=== PATIENT | female | born 1955 | race Caucasian/White ===

== ENCOUNTER 2025-04-11 15:36 | Outpatient (AMB) | payer MEDICARE, SELFPAY ==
--- OUTSIDE RECORDS SUMMARY | 2025-04-11 15:38 | XMS_ITS ---
Author Name [facility] Organization Unknown Care Team Organization Name Specialty Phone Email Start Date End [place] Francia [facility] 07/19/2022 04/29/20 24
--- OUTSIDE RECORDS SUMMARY | 2025-04-11 15:38 | XMS_ITS | Encounter Summary ---
Author Organization [facility] Address [address] [place] [address] Care Team Providers Care Children'S Program Coordinator Name Role Phone Francia Francois MD Primary Care Provider Reason for Visit * Reason Onset Date Comments Request For Order(s) 04/02/2025 [facility] Order # [id number] Encounter Details Date Type Department Care Team ([facility] Contact Info) Description 04/02/2025 Telephone Internal Medicine [facility] [address] [facility] [address] [place] [phone] Liset Fleming MA Request For Order(s) ([facility] Order # [id number]/) Social History Tobacco Use Types Packs/Day Years Used Date Smoking Tobacco: Every Day Cigarettes 0.5 57.1 Started: 1970 Smokeless Tobacco: Never Comments:Pt is trying to treasure t smoking. Has not smoked x 1 wk. Alcohol Use Standard Drinks/Week Comments Yes 0 (1 standard drink = 0.6 oz pur e alcohol) 1/day Housing Instability Answer Date Recorde d Are you worried that in the next 2 months you may not have stable housing? No 10/07/2024 Food Access & Nutrition Answer Date Rec orded Do you have access to a vari ety of food including fruits and vegetables? Yes 10/07/2024 Access to Healthcare Answer Date Record ed Within the last 3 months, [place] many times did you visit the emergency department for your medical care? 4 03/03/2025 Health Literacy Answer Date Recorded How often do you need to hav e someone help you when you read instructions, pamphlets, or other written material from your doctor or pharmacy? Sometimes 10/07/2024 Caregiver: How often do you need to have someone help you when you read instructions, pamphlets, or other written material from your doctor or pharmacy? Not on file 10/07/2024 Financial Risk Answer Date Recorded How hard is it for you to pa y for the very basics like food, housing, medical care, and air conditioning / heating? Hard 10/07/2024 Transportation Answer Date Recorded Has the lack of transportati on kept you from meetings, work, or from getting things needed for daily living? No Has the lack of transportati on kept you from medical appointments or from getting medications? No 03/03/2025 Social Isolation Answer Date Recorded How often do you feel lonely or isolated from those around you? Patient declined 10/07/2024 Food Risk Answer Date Recorded Within the past 12 months we worried whether our food would run out before we got money to buy more. Patient declined 025 Within the past 12 months th e food we bought just didn't last and we didn't have money to get more. Patient declined 09/12 Dependent Care Answer Date Recorded Do you need help finding or paying for care for your loved ones. For example, care transport nurse or elderly care for an older adult? No 10/07/2024 Education Answer Date Recorded Do you think completing more education or training, like finishing a GED, going to college, or learning a trade, would be helpful for you? N/A 10/07/2024 Employment and Income Answer Date Recor ded During the last four weeks, have you been actively looking for work? No 10/07/2024 Living Situation Answer Date Recorded What is your living situation? 0 10/07/2024 Interpersonal Safety Answer Date Record ed Physical Abuse 03/13/2025 Verbal Abuse 03/13/2025 Comments No Sex and Gender Information Value Date Recorded Sex Assigned at Female 09/22/2024 2:57 PM EST Legal Sex Female 4:32 PM EST Gender Identity Female 09/22/2024 2:57 PM EST Sexual Orientation Straight 11/05/2024 12 :39 PM EST documented as of this encounter Functional Status * Are you deaf or do you have serious difficulty hearing? Answer Date of Assessment Author No 03/13/2025 5:33 PM EDT Reed Almonte, CLEMENCIA * Are you blind or do you have serious difficulty seeing, even when wearing glasses? Answer Date of Assessment Author No 03/13/2025 5:33 PM EDT Reed Almonte RN * Do you have serious difficulty walking or climbing stairs? Answer Date of Assessment Author No 03/13/2025 5:33 PM EDT Reed Almonte RN * Do you have serious difficulty dressing or bathing? Answer Date of Assessment Author No 03/13/2025 5:33 PM EDT Reed Almonte RN * Because of a physical, mental, or emotional condition, do you have serious difficulty doing errandsalone such as visiting the doctor? Answer Date of Assessment Author No 03/13/2025 5:33 PM EDT Reed Almonte RN documented as of this encounter Mental Status * Because of a physical, mental, or emotional condition, do you have serious difficulty concentrating, remembering, or making decisions? (5 years old or older) Answer Entry Date Author No 03/13/2025 5:33 PM EDT Reed Almonte RN documented in this encounter Progress Notes * Liset Fleming MA - 04/04/2025 11:50 AM EDT Scanned into chart and faxed to [facility] [phone] * Liset Fleming MA - 04/02/2025 1:40 PM EDT [facility] Order # [id number] Please sign & documented in this encounter Plan of Treatment Upcoming Encounters Date Type Department Care Team (Late st Contact Info) Description 04/24/2025 10:[address] [facility] [address] [facility] [address] [place] [phone] 05/01/2025 3:00 PM EDT Evaluation [facility] Outpatient Rehabilitation [facility] [address] [facility] [place] [address] [place] [phone] Fang Velasco, PT 05/16/2025 2:40 PM EDT Office Visit Gastroenterology - [address] [facility] [address] [place] [address] Antonieta Martinez PA [address] [facility] [address] [place] [address] 06/12/2025 2:45 PM EDT Office Visit Pulmonolgy - [place] [address] [phone] Aparna Contreras, EVARISTO [address] [address] 06/23/2025 2:45 PM EDT Office Visit [facility] Hematology Oncology [address] [place] [phone] Joslyn Vergara DO [address] [place] [address] 06/24/2025 3:45 PM EDT Office Visit Internal Medicine - [place] [address] [phone] Francia Francois MD [address] [phone] documented as of this encounter Visit Diagnoses Not on filedocumented in this encounter Additional Health Concerns Assessment Noted Time PHQ-9 Depression Total Score: 20 025 1:44 PM EST documented as of this encounter Care Teams Children'S Program Coordinator Relationship Specialty Start Date End Date Francia Francois MD [address] [phone] PCP - General Internal Medicine 11/24/21 documented as of this encounter
--- OUTSIDE RECORDS SUMMARY | 2025-04-11 15:38 | XMS_ITS | Patient Health Record ---
Author Organization [facility] Address [address] [place] [address] Care Team Providers Care Invoice Coder Name Role Phone TOM MCDONOUGH Unavailable [phone] Allergies No Known Allergies Reason For Referral No Information Medications Medication SIG (Take, Route, Frequency, Duration) Notes Start Date End Date Status Atenolol 50 MG TAKE 1 TABLET BY DANAE TH EVERY DAY Diagnosis Unavailable Oral; Duration: 90 Active Trelegy Ellipta 100-62.5-25 MCG/INH INHALE 1 PUFF INTO THE LUNGS DAILY AT THE SAME TIME EACH DAY. RINSE MOUTH AFTER TO AVOID FUNGAL INFECTION. Diagnosis Unavailable Inhalation; Duration: 30 Active oxyCODONE-Acetaminophen 7.5-325 MG Oral; Duration: 28 Active Lisinopril 10 MG Oral; Duration: 30 Active Fluticasone Propionate 50 MCG/ACT SPRAY 2 SPRAYS IN EACH NOSTRIL DAILY Nasal; Duration: 90 Active buPROPion HCl ER (SR) 150 MG Oral; Duration: 30 Active Ipratropium-Albuterol 0.5-2.5 (3) MG/3ML INHALE 3ML INTO THE LUNGS 4 TIMES DAILY NEEDED FOR SHORTNESS OF BREATH AND/OR WHEEZING Inhalation; Duration: 90 Active Clotrimazole-Betamethasone 1-0.05 % APPLY TOPICALLY TO THE AFFECTED AREA TWICE DAILY Diagnosis Unavailable External; Duration: 7 Active Albuterol Sulfate HFA 108 (90 Base) MCG/ACT INHALE 1 PUFF BY MOUTH EVERY 6 HOURS Inhalation; Duration: 100 Active Theophylline ER 300 MG Oral; Duration: 30 Active Escitalopram Oxalate 20 MG Oral; Duration: 30 Active Lovastatin 20 MG Oral; Duration: 30 Active Social History Tobacco Use: Social History Observation Description Date Details (start date - stop date) Current Smoker NA - NA Tobacco Use/Smoking Question Answer Notes Are you a current smoker How often do you smoke cigarettes? every day How many cigarettes a day do you smoke? 11-20 Are you interested in quitting? Thinking about q uitting Additional Findings: Tobacco User Modera te cigarette smoker (10-19 cigs/day) Section Notes: Started smoking at the age [age] and smoke about 1pck a day Problems Problem Type SNOMED Code ICD Code Onset Dates Problem Status W/U Status Risk Notes Problem Chronic pain (26044892) Other chronic pain (G89.29) Active confirmed Problem Essential hypertension (41618050) Essential (primary) hypertension (I10) Active confirmed Problem Pure hypercholesterolemia (163553450) Pure hypercholesterolemia (E78.00) Active confirmed Problem Anxiety (16574731) Anxiety (F41.9) Active confi rmed Problem COPD - Chronic obstructive pulmonary disease (34671336) Chronic obstructive pulmonary disease, unspecified COPD type (J44.9) Active confirmed Problem Mild major depression, single episode (90313032) Current mild episode of major depressive disorder without prior episode (F32.0) Active confirmed Plan Of Treatment No Information Insurance Providers Payer Name Payer Address Payer Phone Subscriber Number Group Number Insured Name Patient Relationship to Insured Coverage Start Date Coverage End Date [facility] [address] [place] [address] [id number] [employer] Self - patient is the insured Medical (General) History Medical History History ICD Code hypertension asthma headache hyperlipidemia anxiety depression Surgical History Surgery Date(Month/Year) Tubaligation Mole on her lip was removed and biopsy s how cancerous mole
--- NOTE | 2025-04-11 15:40 | A.OFFVIS_ITS ---
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 The lower back pain began approximately 20-25 years ago following her longterm, attributed to lifting heavy sacks at work. She initially sought relief through ocular care technician and later received monthly injections, which provided temporary relief but were discontinued due to the frequency and associated pain. The cervical spine arthritis is characterized by a limited range of motion, particularly when turning the head quickly, and is accompanied by a clicking sensation. The patient reports that the neck pain is more severe than the back pain, necessitating frequent rest after standing for short periods. She has undergone multiple imaging studies, including X-rays and CT scans, to evaluate t he extent of arthritis. These records are not available for review at this time. Consent will be signed to obtain x-ray results from [facility]. The patient has tried various interventions, including physical therapy and topical analgesics, to manage her symptoms. She expresses reluctance to continue with steroid injections due to past negative experiences and is considering a lternative pain management strategies. - Onset: Pain began approximately 20-25 years ago after longterm due to lifting heavy sacks at work. - Quality: Described as severe neck pain with a clicking sensation, more intense than back pain. - Location: Primarily in the neck and lower back. - Exacerbating factors: Standing for more than a few minutes, turning head quickly. - Relieving factors: Sitting down, use of topical analgesics. - Affect: Pain significantly impacts daily activities, requiring frequent rest. - Analgesia: Previously used steroid injections, currently using topical analgesics. - Adverse Effects: Pain from previous steroid injections, reluctance to continue them. - Activities of Daily Living: Pain limits ability to stand for extended periods and affects neck mobility. - Aberrant Drug Related Behaviors: None reported. Review of Systems Const Details: - Musculoskeletal: Reports chronic lower back pain and neck pain with limited range of motion. - Neurological: Denies dizziness or balance issues. Physical Exam Exam Exam: General: awake, alert, oriented. Answers questions appropriately. Fully engaged in examination. Skin: warm, dry, intact HEENT: Normocephalic. Hearing intact. Cardiac: External chest normal in appearance. Respiratory: No cough, audible wheezing or stridor. Abdomen: without gross distension. MS: No obvious swelling or deformities. Cervical spine: Decreased range motion all planes. Tenderness to palpation midline cervical vertebrae and cervical paraspinal muscles. Bilateral upper extremity strength 5/5. Facet loading positive Neurological: Oriented to person, place, time and situation. Thought process intact. Sitting in wheelchair Psychiatric: Appropriate mood and affect. Good judgment and insight. Vital Signs: Last Vital Signs Pulse 94 04/11/25 15:43 Resp 16 04/11/25 15:43 BP 124/60 04/11/25 15:43 Pulse Ox 96 04/11/25 15:43 Oxygen Delivery Method Room Air 04/11/25 15:43 BMI result Body Mass Index 23.1 Assessment & Plan Assessment & Plan (1) Cervical spondylosis: Code(s): M47.812 - Spondylosis without myelopathy or radiculopathy, cervical region Category: Medical (2) Lumbar spondylosis: Code(s): M47.816 - Spondylosis without myelopathy or radiculopathy, lumbar region Category: Medical (3) Chronic pain syndrome: Code(s): G89.4 - Chronic pain syndrome Category: Medical Plan The management plan for the patient's chronic cervical spine pain includes diagnostic injections and if positive results plan for radiofrequency ablation. The patient is encouraged to maintain the use of topical analgesics and engage in physical therapy to alleviate symptoms. Medical record release this has been signed for Jeanna in [facility] to obtain x-ray results. Continue with Tylenol as prescribed. Unable to take nonsteroidal anti- inflammatory medications due to current use of Eliquis. Will schedule for fluoroscopy guided bilateral diagnostic C2-C3 C4 medial branch blocks with local anesthetic. We will start with the right side, left side to follow in 1-2 weeks. Patient is advised that she will need to hold Eliquis for these injections pending authorization by PCP. Patient was informed and verbally consented to the use of an ambient scribe for clinic note documentation during this visit. Patient Instructions: - Continue using topical analgesics as needed for pain relief. - Engage in physical therapy exercises to improve mobility and reduce pain. - Await scheduling for diagnostic injections to evaluate the potential for radiofrequency ablation. - Follow up with imaging studies as ordered to assess the extent of arthritis. Coding Level of Care Code New Pt Level 4 (93619) Complex EM visit Add On G2211 Diagnoses Cervical spondylosis M47.812 Lumbar spondylosis M47.816 Chronic pain syndrome G89.4
[2025-04-11 15:43] VITALS: BP 124/60; PULSE 94; RESP 16; O2SAT 96; BMI 23.1
== END 2025-04-11 16:12 | disposition home or self-care (01) ==
LOC: HO.PMC 15:37
PROVIDERS: PCP Internal Medicine; Referring Provider Internal Medicine; Visit Provider Registered Nurse Emergency
DX: M47.812 Spondylosis without myelopathy or radiculopathy, cervical region (principal); M47.816 Spondylosis without myelopathy or radiculopathy, lumbar region; G89.4 Chronic pain syndrome
CPT/HCPCS: 99204; G2211

== ENCOUNTER → 2025-04-11 15:36 | Outpatient (BNVA) | payer MEDICARE, SELFPAY | PROVIDERS: PCP Internal Medicine; Referring Provider Internal Medicine; Visit Provider Registered Nurse Emergency | DX: M47.812 Spondylosis without myelopathy or radiculopathy, cervical region (principal); M47.815 Spondylosis without myelopathy or radiculopathy, thoracolumbar region; G89.4 Chronic pain syndrome | CPT/HCPCS: 99202 ==

== ENCOUNTER 2025-06-19 06:24 | Outpatient (REF) | payer MEDICARE, SELFPAY ==
--- NOTE | ~2025-06-19 | FL_ITS ---
EXAMINATION: FL GUIDANCE ONLY HISTORY: M47.812 - Spondylosis without myelopathy or radiculopathy, cervical region COMPARISON: None available. TECHNIQUE: Fluoroscopy time: 0.3 minutes. Cumulative Dose: 1.14 mGy. DAP: 0.0155 mGycm2 Images: 4. FINDINGS: Fluoroscopic spot films of the cervical spine demonstrate needles and contrast material in place on the right. FL/FL guidance in treatment room IMPRESSION: Fluoroscopy during procedure. Please see procedure report for additional information. Electronically signed by: Juvencio Durbin MD 06/19/2025 02:58 PM EDT
== END 2025-06-19 06:25 | disposition home or self-care (01) ==
LOC: CF 06:24
PROVIDERS: Visit Provider Internal Medicine
DX: M47.812 Spondylosis without myelopathy or radiculopathy, cervical region (principal)
CPT/HCPCS: 64490; 64491; J2795; Q9967

== ENCOUNTER 2025-06-19 13:03 | Outpatient (AMB) | payer MEDICARE, SELFPAY ==
--- NOTE | 2025-06-19 13:16 | A.OFFVIS_ITS ---
Vital Signs 06/19/25 13:17 Height 5 ft 3 in Weight 120 lb BMI 21.3 BP 127/58 L Blood Pressure Location Rt brachial Position Sitting Pulse 106 H Pulse Source Pulse Oximeter Pulse Oximetry (%) 95 Oxygen Delivery Method Nasal Cannula Oxygen Flow Rate 3 Intake Visit Reasons: Bilateral Diagnostic C2-C3-C4 MBB Office Clinician Required: No Azure Developer: Azure Developer Present Accompanied by: Employee Allergies No Known Allergies Allergy (Verified 06/19/25 13:17) HPI HPI Bilateral Diagnostic C2-C3-C4 MBB: Details: Patient presents for scheduled procedure. Denies any recent cough, cold, infection, fever or other significant changes in medical history since last office visit. Physical Exam Vital Signs: Last Vital Signs Pulse 106 H 06/19/25 13:17 BP 127/58 L 06/19/25 13:17 Pulse Ox 95 06/19/25 13:17 Oxygen Delivery Method Nasal Cannula 06/19/25 13:17 Oxygen Flow Rate 3 06/19/25 13:17 BMI result Body Mass Index 21.3 Office Procedures Cervical/Thoracic Facet Inj Details: Diagnostic Cervical Medial Branch Block, Bilateral C3, C4 medial branches After obtaining written consent, pre-procedure blood pressure and pulse were re corded and are in the nursing record for review. The patient was placed in a lateral position. The respective cervical area was prepped with chloraprep and draped in sterile fashion. The skin over the target medial branch nerves was anesthetized with 0.5% lidocaine. A 25 gauge 1.5 inch needle was inserted into the target medial branch nerve under fluoroscopic guidance. No paresthesias were elicited with needle placement and aspiration was negative for blood and CSF. Next, 0.2cc of omnipaque 180 was injected to verify positioning. Next 0.5 ml 0.5% ropivicaine was injected (0.5 cc total per level). The identical procedure was performed at the remaining levels. The skin was cleansed and a sterile bandage was applied. Following the procedure the patient's vital signs were stable. The patient tolerated the procedure well and no complications were encountered. Following the procedure the patient's vital signs were stable. The patient was discharged home in good condition with post-procedural instructions. Time Out: Immediately prior to the procedure, the following was verbally confirmed that there is a signed consent form and that the correct patient, planned procedure, site and side are consistent with documentation and that necessary equipment and/or blood products are available prior to the start of the case. Complications: none EBL: <5 cc 11623 - with Fluoroscopy 47390 - second level, with Fluoroscopy (bilateral) Procedure code (CPT) selection complete Assessment & Plan Assessment & Plan (1) Cervical spondylosis: Code(s): M47.812 - Spondylosis without myelopathy or radiculopathy, cervical region Category: Medical Plan Patient is status post bilateral C3 and C4 medial branch blocks. Patient tolerated procedure well and was discharged home in stable condition with discharge instructions. All questions were answered. We will follow-up via telephone or in clinic to assess response to therapy. A follow-up appointment was made during today's visit. Orders: Orders FL guidance in treatment room 06/19/25 M47.812 - Spondylosis without myelopathy or radiculopathy, cervical region Coding Level of Care Code Procedure Only Diagnoses Cervical spondylosis M47.812 CPT Codes Facet Injection Cervical/Thoracic - CPT: 17188 - with Fluoroscopy ([id number]) Facet Injection Cervical/Thoracic - CPT: 58118 - second level, with Fluoroscopy ([id number])
[2025-06-19 13:17] VITALS: BP 127/58; PULSE 106; O2SAT 95; BMI 21.3
== END 2025-06-19 13:55 | disposition home or self-care (01) ==
LOC: HO.PMCPRC 13:03
PROVIDERS: PCP Internal Medicine; Visit Provider Internal Medicine
DX: M47.812 Spondylosis without myelopathy or radiculopathy, cervical region (principal)
CPT/HCPCS: 64490; 64491

== ENCOUNTER 2025-07-11 13:48 | Outpatient (AMB) | payer MEDICARE, SELFPAY ==
--- OUTSIDE RECORDS SUMMARY | 2025-07-04 15:10 | XMS_ITS | Encounter Summary ---
Author Organization [facility] Address [address] [place] [address] Care Team Providers Care Data Integration Architect Name Role Phone Francia Francois MD Primary Care Provider [phone] Reason for Referral * Imaging (Routine) - Pending Review Specialty Diagnoses / Procedures Referred By Ketan carter Referred To Contact Radiology Diagnoses Current smoker Abnormal CT of the chest Mass of upper lobe of right lung Pulmonary nodule 1 cm or greater in diameter Procedures PET CT Skull to Mid Thigh Initial Aparna Contreras NP [address] [place] [address] Phone: tel: fax: [address] [address] Phone: tel: Referral ID Status Reason Start Date Expiration Date V isits Requested Visits Authorized [id number] Pending Review 06/16/2025 06/16/2026 1 1 Reason for Visit * Imaging (Routine) - Pending Review Specialty Diagnoses / Procedures Referred By Ketan carter Referred To Contact Radiology Diagnoses Current smoker Abnormal CT of the chest Mass of upper lobe of right lung Pulmonary nodule 1 cm or greater in diameter Procedures PET CT Skull to Mid Thigh Initial Aparna Contreras NP [address] [place] [address] Phone: tel: fax: [facility] [address] [place] [address] Phone: tel: Referral ID Status Reason Start Date Expiration Date V isits Requested Visits Authorized [id number] Pending Review 06/16/2025 06/16/2026 1 1 Encounter Details Date Type Department Care Team (Latest Contact Info) Description 07/04/2025 3:10 PM EDT Hospital Encounter [facility] PET Scan [address] [place] [address] Current smoker; Abnormal CT of the chest; Mass of upper lobe of right lung; Pulmonary nodule 1 cm or greater in diameter Social History Tobacco Use Types Packs/Day Years Used Date Smoking Tobacco: Every Day Cigarettes 0.5 57.3 Started: 1970 Smokeless Tobacco: Never Comments:Pt is [...] Record ed Within the last 3 months, ho w many times did you visit the emergency [...] care for your loved ones. For example, child welfare social worker or elderly care for an older adult? [...] Date Recorded What is your living situation? Unrecognized valu e 10/07/2024 Interpersonal Safety Answer Date Record ed Physical Abuse Unrecognized value 04/17/2025 Verbal Abuse Unrecognized value 04/17/2025 Comments No Sex and Gender Information Value [...] 5:33 PM EDT Reed Almonte RN * Are you blind or do you have serious difficulty seeing, even when wearing glasses? Answer Date of Assessment Author No 03/13/2025 5:33 PM Reed Sharma RN * Do you have serious difficulty walking or climbing stairs? Answer Date of Assessment Author No 03/13/2025 5:33 PM EDReed Babin RN * Do you have serious difficulty dressing or bathing? Answer Date of Assessment Author No 03/13/2025 5:33 PM EDReed Babin RN * Because of a physical, mental, [...] Reed Almonte RN documented in this encounter Plan of Treatment Upcoming Encounters Date Type Department Care Team (Latest Contact Info) Description 07/24/2025 3:30 PM EST Evaluation [facility] [address] [facility] [address] [place] [phone] Juvencio Macdonald, PT 07/25/2025 1:30 PM EST Ancillary Procedure [facility] [address] [facility] [address] [place] [phone] 08/14/2025 11:00 AM EST Appointment [facility] Infusion Center 271 [facility] 2nd [place] [phone] 09/16/2025 4:00 PM EST Office Visit Pulmonology - [place] 175 [facility] [address] [place] [phone] Aparna Contreras NP [address] [place] [phone] 10/14/2025 2:45 PM EST Office Visit Internal Medicine - [place] 175 [facility] [address] [place] [phone] Francia Francois MD [address] [place] [address] documented as of this encounter Goals Goal Patient Goal Type Associated Problems Recent Progress Patient-Stated? Author Keep patient safe at home General Vicky Almanza, RN Note: 05/19/25 reviewed safety with regards to smoking and O2 use. Monique is aware of risks and reminds Rsoy to not smoke with O2. documented as of this encounter Procedures Procedure Name Priority Date/Time Associated Diagnosis Comments PET CT SKULL TO MID THIGH INITIAL Routine 07/04/2025 5:26 PM EDT Current smoker Abnormal CT of the chest Mass of upper lobe of right lung Pulmonary nodule 1 cm or greater in diameter documented in this encounter Results * PET CT Skull to Mid Thigh Initial (07/04/2025 5:26 PM EDT) Anatomical Region Laterality Modality Body Radiographic Lisa ging 07/08/2025 9:49 AM EDT Impressions 07/08/2025 10:56 AM EDT 1. Bilateral pulmonary nodules/opacities demonstrating variable FDG activity. Spiculated nodule in the right lung apex demonstrates FDG activity and is suspicious for malignancy. Other scattered bilateral nodules/opacities may represent underlying neoplasm and/or postinfectious/postinflammatory etiology. 2. FDG avid AP window lymph node which may represent metastatic disease or may be reactive 3. Asymmetric FDG activity in the right clavicular head and right sacrum suspicious for metastatic disease Please note: The CT was acquired at a low radiation dose settings. The images are of nondiagnostic quality and used solely for purposes of attenuation correction and slice localization for the PET scan. If a diagnostic CT study is desired it must be ordered separately. -------- FINAL REPORT -------- Dictated By: Renata Meléndez Dictated Date: 07/08/2025 09:49 ET Assigned Physician: Renata Meléndez Reviewed and Electronically Signed By: Renata Meléndez Signed Date: 07/08/2025 10:56 ET Workstation ID: [id number] Transcribed By: Self Edit Transcribed Date: 07/08/2025 09:59 ET Narrative 07/08/2025 10:56 AM EDT INDICATION: Lung mass on R apex 4.7x2.2 with additional focus in RML 2.3x1.9 and spiculated nodule on JOHNNY 1.4x1.1. Patient also has family hx of lung cancer and smoker. TECHNIQUE: FDG PET-CT imaging was performed from the skull bases through the thighs in a single acquisition with data set reconstructed in axial, coronal, and sagittal planes at the computer workstation with fused data from both the PET imaging study and attenuation correction CT. The CT portion of the examination was done strictly for attenuation correction and is not a true diagnostic CT examination. DLP: 965 mGy-cm Radiopharmaceutical: 10.2 mCi of F-18 FDG IV. Blood glucose: 111 mg/dl. COMPARISON: Prior chest CT dated May 2025 FINDINGS: HEAD AND NECK: No abnormal FDG activity. Physiologic uptake along the longus capitis and coli muscles. THORAX: Bilateral pulmonary nodules/opacities demonstrating variable FDG activity. The most significant FDG avid lesions are 10 mm spiculated nodule in the right lung apex 3.7 SUV Max, left upper lobe of the lung SUV Max 5.4, right middle lobe SUV max 3.8, right lower lobe SUV max 5.2 and right upper lobe SUV max 2.5. Other smaller scattered nodules/opacities are noted for example in the right lower lobe measuring up to SUV Max 3.0 and in the left lower lobe measuring up to SUV Max 2.1. AP window lymph node SUV max 3.6 (mediastinal blood pool activity SUV max 2.6). Other scattered mediastinal lymph nodes do not demonstrate significant activity in comparison to background. For example right paratracheal SUV max 1.5, right hilar SUV max 2.3. No significant FDG avid axillary lymphadenopathy. ABDOMEN/PELVIS: No abnormal FDG avid abdominal or pelvic lymphadenopathy. Nonspecific activity within the anal canal, rectosigmoid junction, descending colon and within the stomach. Diverticulosis. Cholelithiasis. MUSCULOSKELETAL: Heterogeneous bone marrow activity. Asymmetric activity in the right clavicular head SUV max 4.7 and right sacrum at the level of the sacroiliac joint SUV Max 3.2. Asymmetric muscle activity within the left infraspinatus muscle. Procedure Note Renata Meléndez MD - 07/08/2025 INDICATION: Lung mass on R apex 4.7x2.2 with additional focus in RML2.3x1.9 and spiculated nodule on JOHNNY 1.4x1.1. Patient also has family hxof lung cancer and smoker. TECHNIQUE: FDG PET-CT imaging was performed from the skull bases throughthe thighs in a single acquisition with data set reconstructed in axial,coronal, and sagittal planes at the computer workstation with fused datafrom both the PET imaging study and attenuation correction CT. The CTportion of the examination was done strictly for attenuation correctionand is not a true diagnostic CT examination. DLP: 965 mGy-cm Radiopharmaceutical: 10.2 mCi of F-18 FDG IV. Blood glucose: 111 mg/dl. COMPARISON: Prior chest CT dated May 2025 FINDINGS: HEAD AND NECK: No abnormal FDG activity. Physiologic uptake along thelongus capitis and coli muscles. THORAX: Bilateral pulmonary nodules/opacities demonstrating variable FDGactivity. The most significant FDG avid lesions are 10 mm spiculatednodule in the right lung apex 3.7 SUV Max, left upper lobe of the lung SUVMax 5.4, right middle lobe SUV max 3.8, right lower lobe SUV max 5.2 andright upper lobe SUV max 2.5. Other smaller scattered nodules/opacitiesare noted for example in the right lower lobe measuring up to SUV Max 3.0and in the left lower lobe measuring up to SUV Max 2.1. AP window lymph node SUV max 3.6 (mediastinal blood pool activity SUV max2.6). Other scattered mediastinal lymph nodes do not demonstratesignificant activity in comparison to background. For example rightparatracheal SUV max 1.5, right hilar SUV max 2.3. No significant FDGavid axillary lymphadenopathy. ABDOMEN/PELVIS: No abnormal FDG avid abdominal or pelvic lymphadenopathy.Nonspecific activity within the anal canal, rectosigmoid junction,descending colon and within the stomach. Diverticulosis.Cholelithiasis. MUSCULOSKELETAL: Heterogeneous bone marrow activity. Asymmetric activityin the right clavicular head SUV max 4.7 and right sacrum at the level ofthe sacroiliac joint SUV Max 3.2. Asymmetric muscle activity within the left infraspinatus muscle. IMPRESSION: 1. Bilateral pulmonary nodules/opacities demonstrating variable FDGactivity. Spiculated nodule in the right lung apex demonstrates FDGactivity and is suspicious for malignancy. Other scattered bilateralnodules/opacities may represent underlying neoplasm and/orpostinfectious/postinflammatory etiology. 2. FDG avid AP window lymph node which may represent metastatic diseaseor may be reactive 3. Asymmetric FDG activity in the right clavicular head and right sacrumsuspicious for metastatic disease Please note: The CT was acquired at a low radiation dose settings. The images are ofnondiagnostic quality and used solely for purposes of attenuationcorrection and slice localization for the PET scan. If a diagnostic CTstudy is desired it must be ordered separately. -------- FINAL REPORT -------- Dictated By: Renata Meléndez Dictated Date: 07/08/2025 09:49 ET Assigned Physician: Renata Meléndez Reviewed and Electronically Signed By: Renata Meléndez Signed Date: 07/08/2025 10:56 ET Workstation ID: [id number] Transcribed By: Self Edit Transcribed Date: 07/08/2025 09:59 ET us Aparna Contreras [facility]MI[facility] BIOLOGICAL IMG NM PROCEDURES Final Result documented in this encounter Visit Diagnoses Diagnosis Current smoker Abnormal CT of the chest Nonspecific (abnormal) findings on radiological and other examination of other intrathoracic organs Mass of upper lobe of right lung Pulmonary nodule 1 cm or greater in diameter documented in this encounter Administered Medications Inactive Administered Medications - up to 3 most recent administrations Medication Order MAR Action Action Date Dose Rate Site F-18 FDG pet diag radio-isotope injection 10.2 millicurie 10.2 millicurie, intravenous, Once in imaging, Starting on Mon07/04/25 at 1600, For 1 dose Given 07/04/2025 3:53 PM EDT 10.2 millicuries Left Antecubital documented in this encounter Orders Medications Ordered That Olayinka ht Not Have Been Administered Count Last Ordered Date First Ordered Date F-18 FDG pet diag radio-isot ope injection 10.2 millicurie 1 07/04/2025 documented in this encounter Additional Health Concerns Infection Onset Date Last Indicated Resolved Time 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
--- OUTSIDE RECORDS SUMMARY | 2025-07-08 14:15 | XMS_ITS | Encounter Summary ---
Author Organization [facility] Address [address] [place] [address] Care Team Providers Care Bodily Injury Adjuster Name Role Phone Francia Francois MD Primary Care Provider [phone] Reason for Visit * Reason Comments Follow-up Encounter Details Date Type Department Care Team (Latest Contact Info) Description 07/08/2025 2:15 PM EDT Office Visit [facility] Hematology Oncology [address] [place] [phone] Joslyn Vergara, DO [address] [place] [address] Hypogammaglobulinemia (CMS/HCC V24) (Primary Dx); Iron deficiency anemia, unspecified iron deficiency anemia type; Lung mass Social History Tobacco Use Types Packs/Day Years [...] PM EST documented as of this encounter Last Filed Vital Signs Vital Sign Reading Time Taken Comments Blood Pressure 117/51 07/08/2025 2:31 PM EDT Pulse 92 07/08/2025 2:31 PM EDT Temperature 36.2 C (97.2 F) 07/08/2025 2:31 PM EDT Respiratory Rate - - Oxygen Saturation 96% 07/08/2025 2:31 PM EDT 3L O2 Inhaled Oxygen Concentration - - Weight 54.4 kg (120 lb) 07/08/2025 2:31 PM EDT Height 160 cm (5' 3 ) 07/08/2025 2:31 PM EDT Body Mass Index 21.26 07/08/2025 2:31 PM EDT documented in this encounter Functional Status * Are you [...] Reed Almonte RN documented in this encounter Ordered Prescriptions Prescription Sig Dispense Quantity Refills Last Filled Start Date End Date ondansetron ODT (ZOFRAN-ODT) 8 mg disintegrating tabletIndications:Ir on deficiency anemia, unspecified iron deficiency anemia type Dissolve 1 tablet (8 mg total) on top of the tongue every 8 (eight) hours if needed for nausea or vomiting for up to 7 days. 21 each 2 07/08/2025 documented in this encounter Progress Notes * Joslyn Vergara, DO - 07/08/2025 2:15 PM EDT Hematology/Oncology Follow Up Note Subjective: Patient ID: Rosy Sevilla is a 70 y.o. female. History of Present Illness The patient presents for follow up of anemia and hypogammaglobulinemia. She came for IVIG last week but had anxiety and stated she could not finish the infusion. Reports her legs are better Overall she says her breathing is not good. She has ongoing back pain. Medical history Past Medical History: Diagnosis Date Alcoholic cirrhosis ([facility] V24, [facility] V28) Anxiety DX:Anxiety Arthritis DX:Arthritis Chronic back pain DX:Chronic back pain COPD (chronic obstructive pulmonary disease) ([facility] V24, [facility] V28) DX:COPD (chronic obstructive pulmonary disease) ([facility]) Depression DX:Depression HLD (hyperlipidemia) DX:HLD (hyperlipidemia) HTN (hypertension) DX:HTN (hypertension) Tobacco abuse disorder DX:Tobacco abuse disorder Vitamin D deficiency DX:Vitamin D deficiency SOCIAL HISTORY Lives with grand daughter. Active smoker. She has not had a cigarette in a week. The following portions of the patient's chart were reviewed in this encounter and updated as appropriate: . Review of Systems See above Objective: Vitals: 07/08/25 1431 BP: 117/51 Pulse: 92 Temp: 36.2 ??C (97.2 ??F) SpO2: 96% Physical Exam General: pale, frail appearing older woman Heent: no scleral icterus, no stridor Resp: CTAB Abd: soft no tenderness Respiratory: Bilateral wheezing noted upon auscultation. Integument/Skin: mild swelling both ankles Results CT Head wo and w Contrast Narrative History: Dizziness. Gait instability. Comparison: 06/25/24 Technique: Contiguous axial images were obtained at 2.5 mm intervals through the posterior fossa and at 5 mm intervals through the remainder of the brain both before and following the uneventful intravenous administration of 90 cc Isovue-370. DLP: 1965.86 mGy/cm GE LightSpeed VCT Iterative reconstruction technique Findings: Moderate generalized cerebral volume loss is again demonstrated. Patchy deep white matter hypodensity is present bilaterally, unaccompanied by mass effect or hemorrhage and without significant change. No abnormal intra- or extra-axial masses or fluid collections are seen. There is no evidence of acute intracranial hemorrhage. No abnormal brain parenchymal or meningeal enhancement is seen following contrast administration. The included portions of the paranasal sinuses are clear. Minimal partial opacification of the leftmastoid air cells is seen. The calvarium is intact. Impression Impression: 1. No acute hemorrhage or intracranial mass effect. 2. Moderate, nonspecific deep white matter changes compatible with chronic microvascular ischemia in a patient of this age. 3. No abnormal intracranial enhancement. -------- FINAL REPORT -------- Dictated By: Ml Solorzano Dictated Date: 06/25/2025 15:48 ET Assigned Physician: Ml Solorzano Reviewed and Electronically Signed By: Ml Solorzano Signed Date: 06/25/2025 15:52 ET Workstation ID: [id number] Transcribed By: Self Edit Transcribed Date: 06/25/2025 15:48 ET Assessment & Plan 70-year-old female with a history of COPD on chronic oxygen, CHF, presents for follow up of anemia. The patient presents with anemia present for at least the last five months, worsened recently. Laboratory testing indicates she does have iron deficiency and also borderline B12 levels. SPEP shows nospike or significant rise in light chains. She does have severely low IgG levels indicating hypogammaglobulinemia. Received two doses of feraheme, tolerated fine. Now will need to resume IVIG given levels still low Iron deficiency Anemia Borderline b 12 deficiency Continue on oral b12 supplement No further feraheme needed Hypogammaglobulinemia Return in 1-2 weeks for IVIG Will lower dose benadryl to 25 Caregiver needs to stay with her the whole time and can take anti anxiety med as needed. Lung masses Discussed with pulm, they ordered IR biopsy Will discuss at lung TB Send tumor for caris testing Likely will need systemic therapy Dizziness Follow up w/ pcp Ct head negative for acute issue. documented in this encounter Plan of Treatment Upcoming Encounters Date Type Department Care Team (Latest Contact Info) Description 07/24/2025 3:30 PM EST Evaluation [facility] [place] 175 [facility] 350 [place] [phone] Juvencio Macdonald, PT 07/25/2025 1:30 PM EST Ancillary Procedure [facility] - [facility] [address] [facility] [address] [place] [phone] 08/14/2025 11:00 AM EST Appointment [facility] Infusion Center [address] [facility] 2nd [place] [phone] 09/16/2025 4:00 PM EST Office Visit Pulmonology - [place] 175 [facility] 200 [place] [phone] Aparna Contreras NP [address] [place] [phone] 10/14/2025 2:45 PM EST Office Visit Internal Medicine - [place] 175 [facility] 200 [place] [phone] Francia Francois MD [address] [place] [phone] documented as of this encounter Goals Goal Patient Goal Type Associated Problems Recent Progress Patient-Stated? Author Keep patient safe at home Vicky Mary, RN Note: 05/19/25 reviewed safety with regards to smoking and O2 use. Monique is aware of risks and reminds Rosy to not smoke with O2. 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
--- NOTE | 2025-07-11 13:51 | A.OFFVIS_ITS ---
Vital Signs 07/11/25 13:55 Height 5 ft 3 in Weight 120 lb BMI 21.3 BP 134/58 L Blood Pressure Location Rt brachial Position Sitting Pulse 100 Pulse Source Pulse Oximeter Pulse Oximetry (%) 93 Oxygen Delivery Method Nasal Cannula Oxygen Flow Rate 3 Intake Visit Reasons: S/P Bilateral Diagnostic C2-C3-C4 MBB Intake Note: Pain today 03/20 Unemployment Specialist Required: No Accompanied by: Other Relationship Allergies No Known Allergies Allergy (Verified 07/11/25 13:56) HPI Comments Details: The patient is a 70-year-old female presenting for follow up s/p bilateral diagnostic C2 C3 C4 MBBs performed 06/19/25. The cervical arthritis was previously addressed with test injections on June 19, which provided some relief. States she was not advised to maintain a pain diary after the procedure so she is not able to detail how much relief she received in the hours after the injections. Currently, the lumbar pain is more severe than the cervical pain, significantly impacting her daily activities. The patient experiences difficulty standing for more than two to three minutes, necessitating frequent rest. The patient has a history of atrial fibrillation for which she is on blood thinners, specifically Eliquis. - Cervical pain is intermittent and varies in intensity. - Lumbar pain is more severe, worsens with standing for more than two to three minutes. - Pain interferes with daily activities such as standing and doing dishes. - Affect: Pain impacts daily activities and requires frequent rest. - Analgesia: Test injections provided some relief for cervical arthritis. - Activities of Daily Living: Difficulty standing for prolonged periods, uses a stool for tasks like doing dishes. Review of Systems Narrative - Musculoskeletal: Reports intermittent cervical pain, severe lumbar pain. - Cardiovascular: Reports history of atrial fibrillation, currently on blood thinners. Physical Exam Exam Exam: General: awake, alert, oriented. Answers questions appropriately. Fully engaged in examination. Skin: warm, dry, intact HEENT: Normocephalic. Hearing intact. Cardiac: External chest normal in appearance. Respiratory: No cough, audible wheezing or stridor. Abdomen: without gross distension. MS: No obvious swelling or deformities. Neurological: Oriented to person, place, time and situation. Thought process intact. Sitting in wheelchair Psychiatric: Appropriate mood and affect. Good judgment and insight. Vital Signs: Last Vital Signs Pulse 100 07/11/25 13:55 BP 134/58 L 07/11/25 13:55 Pulse Ox 93 07/11/25 13:55 Oxygen Delivery Method Nasal Cannula 07/11/25 13:55 Oxygen Flow Rate 3 07/11/25 13:55 BMI result Body Mass Index 21.3 Assessment & Plan Assessment & Plan (1) Cervical spondylosis: Code(s): M47.812 - Spondylosis without myelopathy or radiculopathy, cervical region Category: Medical (2) Lumbar spondylosis: Code(s): M47.816 - Spondylosis without myelopathy or radiculopathy, lumbar region Category: Medical (3) Chronic pain syndrome: Code(s): G89.4 - Chronic pain syndrome Category: Medical Plan The plan includes submitting insurance authorization for test injections targeting the lumbar region to assess pain relief. The patient will continue on Eliquis for atrial fibrillation but will need to hold for the procedure pending cheese pancake roller clearance. The patient is advised to maintain a pain diary post-procedure to document pain relief and any adverse effects. Coordination with a new cheese pancake roller is necessary to evaluate the continuation of blood thinners. Schedule for Fluoroscopy guided bilateral diagnostic L3 L4 DR L5 MBBs with local anesthetic. Patient was informed and verbally consented to the use of an ambient scribe for clinic note documentation during this visit. Patient Instructions: - Maintain a pain diary after the lumbar injections to track pain relief and any side effects. - Continue taking Eliquis as prescribed. - Schedule an appointment with a new cheese pancake roller to discuss the management of atrial fibrillation. Coding Level of Care Code Est Pt Level 3 (42477) Complex EM visit Add On G2211 Diagnoses Cervical spondylosis M47.812 Lumbar spondylosis M47.816 Chronic pain syndrome G89.4
[2025-07-11 13:55] VITALS: BP 134/58; PULSE 100; O2SAT 93; BMI 21.3
--- OUTSIDE RECORDS SUMMARY | 2025-07-11 14:44 | XMS_ITS | Data Portability ---
Author Organization [place] - [facility] Address [address] [place] [id number] Care Team Providers Care Car Lot Attendant Name Role Phone DYLANA NINFA Primary Care Provider [phone] Assessment Encounter Date Assessment Date Assessment LastModified by Organization Details LastModified Time 07/24/2021 07/24/2021 Time On Scene with Patient: 00:50:17 DDX: COPD exacerbation, CHF, cardiac ischemia, NSTEMI, PE, pneumonia, medication reaction, This is a 66 year-old female with progressive shortness of breath, heavy smoker and daily ETOH use who has some significant social stressors in her home at this time. Workup done by [facility] ED reviewed with patient and their concerns. Pt adamantly refused admission to the hospital when she was seen yesterday and refuses just as strongly to return today. After some de-escalation, patient had resolution of diaphoresis and her heart rate improved. BP decreased as well. Pt did not show hypoxemia any lower than 90% on RA. She had removed her O2 during the visit and appeared to be tolerating it without increased SOB NOR hypoxemia. Repeat EKG done appeared similar to those which were done at [facility] ED (as was told to this provider on phone). PT has been taking the steroid prescribed to her though it was challenging for her to understand the dosing of the medrol dose pack that was prescribed to her by ED. She has also been using her updrafts (Mateo is her name for it) but only twice a day, During evaluation patient also complained of back pain atypical for her. With her initial high BP, medical history, elevated concern for AAA. Initial screening by bedside ultrasound with a normal diameter aorta 1.56 cm. Pt would benefit from further ED evaluation but refused this outright. Discussed with patient concerns for her well-being and remaining home but continued to refuse ED. With that in mind, the following plan was set up: Any worsening symptoms, back pain, chest pain, nausea, vomiting, sweatiness, call 911. Take the updrafts every 4-6 hours. Take the medrol dose lore as directed on the blister lore. Cut down on the consumption of wine (3-4 glasses a night on her admission) Drink more fluids, Follow up with the office of her PCP - closed during our assessment. STOP SMOKING - pt had a sister who recently from COPD which makes her consider cessation at this time. Pt understands the level of concern this provider has with her present condition and situation but refuses to go to be further evaluated, monitored in the ED. She was left in the kitchen talking with her niece and walking in the living room. Cigarettes were out as was fireball liquor as DH team was leaving. Not available 07/25/2021 07:39:09 Plan of Treatment Reminders Order Date Submit Date Provider Last Modified By Organization Details Last Modified Time Details Appointments None record ed. Lab None record ed. Referral None record ed. Procedures None record ed. Surgeries None record ed. Imaging None record ed. Medication Orders None record ed. Patient TargetsNo targets recorded. Patient Instructions Encounter Date Encounter Id Patient Instructions Last Modified By Organization Details Last Modified Time 07/24/2021 [id number] [facility] to evaluate you for shortness of breath. We listened to your lungs, assessed you. we then called [facility] ED as they evaluated you yesterday in the ED and wanted you to be admitted. In the ED, you had an EKG, labs, chest xray. you also were given steroids and updrafts. You refused to stay in the hospital because you wanted to go home and take care of your dog. Today we checked your EKG and it id similar to what was shared with me from [facility]. We talked about the plan for you now. 1. TAKE THE METHYLPEDNISOLONE PRESCRIBED - LOOK AT THE BLISTER PACK 2. TAKE THE UPDRAFT - MATEO - EVERY 6 HOURS - NEXT DOSE AT 11 PM 3. USE THE OXYGEN FOR YOUR BREATHING. 4. STOP SMOKING!!! - YOU NEED TO WORK ON THIS BECAUSE YOUR LUNGS ARE GETTING WORSE 5. DRINK PLENTY OF FLUIDS NOT WINE. PLEASE CUT BACK ON THIS WELL. 6. IF YOUR BREATHING WORSENS, PLEASE GO TO THE ED. FOLLOW UP WITH DR. Po LINCOLN'S OFFICE TO SEE WHO YOU FOLLOW UP WITH. candi Not available 07/25/2021 07:22:18 Reason for Referral None Reported. Procedures Surgical History Date Name Laterality Status Provider Name and Address Organization Details Recorded Time 07/24/20 21 ECG Interpretation - completed LARRY JEWELL NP [address] [place] [address], [phone], [place] [facility] 07/25/2021 07:22:09 Imaging Results None recorded. Procedure Notes None recorded. Medical Equipment None Reported. Allergies No known drug allergies Medications Name Sig Start Date Stop Date Status Note LastModified by Organization Details LastModified Time bupropion HCl SR 150 mg tablet,12 hr sustained-r elease active Not Available Not Available Not Available ipratropium 0.5 mg-albutero l 3 mg (2.5 mg base)/3 mL nebulizatio n soln INHALE 3ML INTO THE LUNGS 4 TIMES DAILY NEEDED FOR SHORTNESS OF BREATH AND/OR WHEEZING active Not Available Not Available No t Available azithromyci n 250 mg tablet 07/24 completed Not Available Not Available Not Available prednisone 20 mg tablet TAKE 2 TABLETS BY MOUTH EVERY DAY FOR 5 DAYS active Not Available Not Available No t Available amoxicillin 500 mg tablet TAKE 1 TABLET BY MOUTH EVERY 12 HOURS 07/24 completed Not Available Not Available Not Available theophyllin e ER 300 mg tablet,exte nded release,12 hr TAKE 1 TABLET BY MOUTH EVERY OTHER DAY active Not Available Not Available No t Available Deep Sea Nasal 0.65 % spray aerosol SPRAY 1 SPRAY IN NOSTRIL 4 TIMES A WEEK active Not Available Not Available No t Available clotrimazol e-betametha sone 1 %-0.05 % topical cream APPLY TOPICALLY TO THE AFFECTED AREA TWICE DAILY active Not Available Not Available No t Available lisinopril 10 mg tablet active Not Available Not Available Not Available furosemide 20 mg tablet 07/24 completed Not Available Not Available Not Available oxycodone-a cetaminophe n 7.5 mg-325 mg tablet TAKE 1 TABLET BY MOUTH EVERY 6 HOURS NEEDED FOR PAIN active Not Available Not Available No t Available lovastatin 20 mg tablet TAKE 1 TABLET BY MOUTH EVERY DAY WITH THE EVENING MEAL active Not Available Not Available No t Available albuterol sulfate HFA 90 mcg/actuati on aerosol inhaler INHALE 1 PUFF BY MOUTH EVERY 6 HOURS active Not Available Not Available No t Available fluticasone propionate 50 mcg/actuati on nasal spray,suspe nsion SPRAY 2 SPRAYS IN EACH NOSTRIL DAILY active Not Available Not Available No t Available escitalopra m 20 mg tablet TAKE 1 TABLET BY MOUTH EVERY DAY active Not Available Not Available No t Available diclofenac 1 % topical gel active Not Available Not Available Not Available Anoro Ellipta 62.5 mcg-25 mcg/actuati on powder for inhalation INHALE 1 PUFF INTO THE LUNGS DAILY. active Not Available Not Available No t Available Vitals Date Recorded Oxygen saturation Oxygen saturation in Arterial blood by Pulse oximetry Inhaled oxygen flow rate Body temperature Heart rate Respiratory rate Systolic And Diastolic Provider Name and Address Organization Details Last Updated DateTime 1 94 % 94 % 3 L/min 98.4 [degF] 100 /min 22 /min 200/100 mm[Hg] Not Available [facility] 17:24:14 Social History Question Answer Notes LastModified by [employer] Details LastModified Time Tobacco Smoking Status Current Every Day Smoker LARRY JEWELL, EVARISTO [address] [place], [address], [place] [facility] 07/24/2021 17:25:23 Do You Have An Advance Directive? No Information not available 07/24/2021 Excessive Alcohol Or Drug Use No Information not available 07/24/2021 Does This Patient Have A PCP? Yes Information not available 07/24/2021 How Many Years Have You Smoked Tobacco? 50 Information not available 07/24/2021 Sex: Unknown Functional Status Question Answer Note LastModified by [employer] Details LastModified Time Do you use any illicit or recreational drugs? No Information not available 07/24/2021 Do you or have you ever used any other forms of tobacco or nicotine? No Information not available 07/24/2021 What is your level of alcohol consumption? Moderate Information not available 07/24/2021 Mental Status None recorded. Family History Nothing Reported. Medical History Condition Response COPD Y Hypothyroidism N A-fib N Cancer Y Stroke N High Cholesterol N Rheumatoid Arthritis N Kidney Disease N Parkinson's Disease N CHF N Asthma N Pulmonary Embolism N Hypertension N Osteoporosis N Gynecological HistoryNo gynecological history recorded. Obstetrics History GPAL:G 0 P 0 0 0 0 Past Encounters Encounter ID Performer Location Encounter Start Date Encounter Closed Date Diagnosis/Indication Diagnosis SNOMED-CT Code Diagnosis ICD10 Code Diagnosis IMO Codes Diagnosis Note [id number] LARRY JEWELL NP [facility] [address] [place] [address] 07/24/2021 17:19:32 07/25/2021 08:05:37 Acute exacerbation of chronic obstructive pulmonary disease 291971665 J44.1 Low back pain 656972207 M54.50 Health Concerns Section Related Observation LastModified by Organization Detai ls LastModified Time None Recorded Concern Status LastModified by Organization Details LastModified Time None Recorded Advance Directives Directive N: Payers Insurance Date Sequence Insurance Name Policy Number Policy Mccoy Covered Member ID Mccoy Member ID Guarantor Name 07/24/2021 1 *SELF PAY* Tangela Cantu [id number] Tangela Cantu 07/24/2021 1 [facility] (MEDICARE REPLACEMENT/A DVANTAGE - HMO) [id number] Tangela Cantu [id number] Tangela Cantu Notes Date Note Type Note Provider Name and Address Organization Details Recorded Time 07/24/2021 text/html 66 year-old female with history of COPD, daily ETOH use, possible OUD undiagnosed, whose granddaughter calls to home to evaluate patient for shortness of breath and cough.Pt has been having increasing dyspnea on exertion for the past 7 days with cough and congestion. She has oxygen in the home that she has never had to use before but needed it today for her breathing. She went to the ED yesterday for evaluation as she felt she could .She left against medical advice as she had to care for her dog. At the [facility] ED:CBC unremarkable, labs unremarkable.serial trops and EKGS unremarkable.glucose 139CXR: hyperinflated lungs consistent with COPD.Pt was treated with steroids and updrafts but patient refused to stay and was discharged home on cough syrup and medrol dose pack. Upon arrival of team, krystyna walked to car. She reports that the daughter of patient just arrived home from hospital after leaving AMA.The daughter of patient is withdrawing from substances and is making my grandmother crazy . Granddaughter reports that she is taking the daughter out of the house and bringing her back to the ED OR to a usp as staying with the patient is not an option.Patient reports that she agrees with this and just cant handle this anymore . She refuses to go to the ED at this time. I just need to sit, relax and have a f-ing moment of peace! LARRY JEWELL, EVARISTO [address], [place], [address], [place] [facility] 07/25/2021 07:39:50 OBGyn Episode No OBEpisode recorded.
--- OUTSIDE RECORDS SUMMARY | 2025-07-11 14:44 | XMS_ITS | Encounter Summary ---
Author Organization [facility] Address [address] [place] [address] Care Team Providers Care Ore Storage Drier Name Role Phone Francia Francois MD Primary Care Provider [phone] Encounter Details Date Type Department Care Team ([facility] st Contact Info) Description 07/08/2025 Telephone Pulmonology [facility] [address] [place] [address] Aparna Contreras, EVARISTO [address] [place] [address] Social History Tobacco Use Types Packs/Day Years [...] care for your loved ones. For example, teacher early childhood development or elderly care for an older adult? [...] documented in this encounter Progress Notes * Flor Plaza [place] - 07/09/2025 10:41 AM EDT Fax sent to Interventional Radiology at [phone] * Aparna Contreras NP - 07/09/2025 9:42 AM EDT Yes. thanks * Flor Plaza [place] - 07/09/2025 8:24 AM EDT Is this for a ct guided lung biopsy? * Aparna Contreras NP - 07/08/2025 6:22 PM EDT Please send her referral for biopsy to Interventional Radiology. thanks documented in this encounter Plan of Treatment Upcoming Encounters Date Type Department Care Team (Latest Contact Info) Description 07/24/2025 3:30 PM EST Evaluation [facility] [address] [facility] [address] [place] [address] Juvencio Macdonald, PT 07/25/2025 1:30 PM EST Ancillary Procedure [facility] [address] [facility] [address] [place] [address] 08/14/2025 11:00 AM EST Appointment [facility] [address] [facility] 2nd [place] [address] 09/16/2025 4:00 PM EST Office Visit Pulmonology - [place] [address] [facility] [address] [place] [phone] Aparna Contreras NP [address] [place] [phone] 10/14/2025 2:45 PM EST Office Visit Internal Medicine - [place] [address] [facility] [address] [place] [phone] Francia Francois MD [address] [place] [phone] documented as of this encounter Goals Goal [...] filedocumented in this encounter Additional Health Concerns Infection Onset Date 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
--- OUTSIDE RECORDS SUMMARY | 2025-07-11 14:44 | XMS_ITS | Encounter Summary ---
Author Organization [facility] Address [address] [place] [address] Care Team Providers Care Air Conditioner Installer Helper Name Role Phone Francia Francois MD Primary Care Provider [phone] Reason for Referral * Consultation (Routine) - Authorized Specialty Diagnoses / Procedures Referred By Contact Referred To Contact Interventional Radiology / Radiology Diagnoses Pulmonary nodule 1 cm or greater in diameter Aparna Contreras NP [address] [place] [address] Phone: tel:[phone] fax:[phone] [facility] [address] [place] [phone] Phone: tel: Referral ID Status Reason Start Date Expiration Date Visits Requested Visits Authorized [id number] Authorized Specialty Services Required 07/08/2026 1 1 Encounter Details Date Type Department Care Team (Late st Contact Info) Description 07/08/2025 Telephone Pulmonology - [place] [address] [phone] Aparna Contreras NP [address] [place] [address] Social History Tobacco Use Types [...] for your loved ones. For example, child development director or elderly care for an older adult? [...] Entry Date Author No 03/13/2025 5:33 PM Reed Sharma RN documented in this encounter Progress Notes * Aparna Contreras NP - 07/08/2025 5:59 PM EDT Spoke to Keyla who is caregiver and on verbal release due to patient was not available to talk at this time. States since ree received news she has come home and has been drinking. She was informed about results from PET by her drilling plant operator. I have discussed with Tonia that will need biopsy but due to severely impaired lung function may not be good candidate for bronchoscopy therefore IR for lung biopsy will be more appropriate. She understands and agrees with plan. documented in this encounter Plan of Treatment Upcoming Encounters Date Type Department Care Team (Latest Contact Info) Description 07/24/2025 3:30 PM EST Evaluation [facility] [address] [facility] [address] [place] [address] Juvencio Macdonald, PT 07/25/2025 1:30 PM EST Ancillary Procedure [facility] [address] [facility] [address] [place] [address] 08/14/2025 11:00 AM EST Appointment [facility] [address] [facility] 2nd [place] [address] 09/16/2025 4:00 PM EST Office Visit Pulmonology - [place] [address] [facility] [address] [place] [phone] Aparna Contreras NP [address] [place] [phone] 10/14/2025 2:45 PM EST Office Visit Internal Medicine - [place] [address] [facility] [address] [place] [phone] Francia Francois MD [address] [place] [address] Scheduled Referrals Name Type Priority Associated Diagnoses Order Schedule Ambulatory referral to Interventional Radiology Outpatient Referral Routine Pulmonary nodule 1 cm or greater in diameter 1 Occurrences starting 07/08/2025 until 07/08/2026 documented as of this encounter Goals Goal Patient Goal Type Associated Problems Recent Progress Patient-Stated? Author Keep patient safe at home Vicky Mary, RN Note: 05/19/25 reviewed safety with regards to smoking and O2 use. Monique is aware of risks and reminds Rosy to not smoke with O2. 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
--- OUTSIDE RECORDS SUMMARY | 2025-07-11 14:45 | XMS_ITS | Clinical Summary ---
Author Organization 175 [facility] Address [address] [place] [address] Phone Care Team Providers Care Sales Manager Name Role Phone Francia Francois MD Primary Care Provider [phone] Allergies No known active allergies Medications Oxygen Therapy (O2) gas Inhale 4 L into the lungs continuous prn for Other (exertion and sleep). 021 Active thiamine 100 mg tablet Take 1 tablet (100 mg total) by mouth 1 (one) time each day. 024 Active dilTIAZem LA (CARDIZEM LA) 120 mg 24 hr tablet Take 1 tablet (120 mg total) by mouth 1 (one) time each day. 024 Active folic acid (FOLVITE) 1 mg tablet Take 1 tablet (1 mg total) by mouth 1 (one) time each day. 024 Active predniSONE (DELTASONE) 5 mg tablet Take 1 tablet (5 mg total) by mouth 1 (one) time each day. 024 Active atorvastatin (LIPITOR) 80 mg tablet Take 1 tablet (80 mg total) by mouth 1 (one) time each day. 90 tablet 3 025 Active ipratropium-albut Jose (DUONEB) 0.5-2.5 mg/3 mL nebulizer solutionIndicatio ns:Chronic obstructive pulmonary disease, unspecified COPD type (CMS/HCC V24, CMS/HCC V28),Acute congestive heart failure, unspecified heart failure type ([facility] V24, [facility] V28) Take 3 mL by nebulization every 6 (six) hours. 360 mL 2025 Active nicotine (NICODERM CQ) 21 mg/[address] 1 patch on the skin 1 (one) time each day. 30 each Active albuterol HFA (PROAIR HFA ; PROVENTIL HFA ; VENTOLIN HFA) 90 mcg/actuation inhaler INHALE 2 PUFFS INTO THE LUNGS EVERY 6 HOURS NEEDED FOR COUGH, WHEEZING OR SHORTNESS OF BREATH FOR UP TO 90 DAYS. THIS IS A RESCUE MEDICATION NOT EXCEED 12 INHALATIONS/24 HRS. 18 each Active cyanocobalamin (VITAMIN B-12) 500 mcg tablet Take 1 tablet (500 mcg total) by mouth 1 (one) time each day. 30 each 2025 Active saccharomyces boulardii (FLORASTOR) 250 mg capsule Take 1 capsule (250 mg total) by mouth 2 (two) times a day. Active multivitamin tablet Take 1 tablet by mouth 1 (one) time each day. Active loperamide (IMODIUM A-D) 2 mg tablet Take 1 tablet (2 mg total) by mouth 4 (four) times a day if needed for diarrhea. Active Trelegy Ellipta 100-62.5-25 mcg inhalerIndication s:Chronic obstructive pulmonary disease, unspecified COPD type ([facility] V24, [facility] V28) Inhale 1 puff (100 mcg total) by mouth 1 (one) time each day. Rinse mouth with water after use to reduce aftertaste and incidence of candidiasis. Do not swallow. 3 each Active buPROPion XL (WELLBUTRIN XL) 150 mg 24 hr tablet Take 1 tablet (150 mg total) by mouth 1 (one) time each day in the morning. Do not crush, chew, or split. 30 each 025 2025 Active busPIRone (BUSPAR) 5 mg tablet Take 1 tablet (5 mg total) by mouth 3 (three) times a day. 90 each 025 2025 Active apixaban (Eliquis) 2.5 mg tablet Take 1 tablet (2.5 mg total) by mouth 2 (two) times a day. 180 tablet 3 Active PARoxetine (PAXIL) 20 mg tablet Take 1 tablet (20 mg total) by mouth at bedtime. Active mupirocin (BACTROBAN) 2 % ointment Apply topically. Active roflumilast (DALIRESP) 500 mcg tabletIndications :Chronic obstructive pulmonary disease, unspecified COPD type ([facility] V24, [facility] V28),Acute congestive heart failure, unspecified heart failure type ([facility] V24, [facility] V28) Take 1 tablet (500 mcg total) by mouth 1 (one) time each day. 90 tablet 3 025 2025 Active magnesium oxide (MAG-OX) 400 mg (241.3 elemental magnesium) tablet TAKE 1 TABLET BY MOUTH EVERY DAY 28 tablet 2 Active furosemide (LASIX) 40 mg tabletIndications :SOB (shortness of breath),Chronic diastolic CHF (congestive heart failure) ([facility] V24, [facility] V28) Take 1 tablet (40 mg total) by mouth 1 (one) time each day. 30 each 11 Active loperamide (Imodium A-D) 2 mg tabletIndications :Diarrhea of presumed infectious origin Take 1 tablet (2 mg total) by mouth 1 (one) time each day if needed for diarrhea. 90 tablet 2 025 2025 Active ascorbic acid (VITAMIN C) 250 mg tablet TAKE 1 TABLET BY MOUTH 2 TIMES A DAY. TAKE WITH IRON TABLET FOR BETTER ABSORPTION 56 tablet 6 Active acetaminophen (TYLENOL) 500 mg tablet TAKE 1 TABLET BY MOUTH EVERY 8 HOURS NEEDED FOR PAIN 90 tablet 2 Active ketoconazole (NIZORAL) 2 % cream Apply topically 2 (two) times a day. 30 g 2 Active Additional Information Patient not taking.Reason: Not effective, Reported on 07/03/2025 ferrous gluconate (FERGON) 324 mg (38 mg iron) tablet TAKE 1 TABLET BY MOUTH TWICE A DAY 168 tablet 2 Active cephalexin (KEFLEX) 500 mg capsule Take 1 capsule (500 mg total) by mouth 2 (two) times a day. 21 each Active loperamide (Imodium A-D) 2 mg tablet Take 1 tablet (2 mg total) by mouth 4 (four) times a day if needed for diarrhea. 120 tablet 3 Active magnesium oxide 400 mg magnesium capsule Take 1 capsule by mouth 1 (one) time each day. 30 capsule 5 Active potassium chloride (KLOR-CON M20) 20 mEq CR tablet Take 1 tablet (20 mEq total) by mouth 1 (one) time each day. Tablet may be swallowed whole (do not crush/chew/suck on) OR broken in half and each half swallowed separately OR dissolved (whole tablet) in ~4 ounces of water (allow ~2 minutes to dissolve, stir well and administer immediately). 90 each 3 Active cholecalciferol (VITAMIN D-3) 50 mcg (2,000 unit) capsule Take 1 capsule (2,000 Units total) by mouth 1 (one) time each day. 90 capsule 3 Active traMADoL (ULTRAM) 50 mg tabletIndications :Chronic back pain, unspecified back location, unspecified back pain laterality Take 1 tablet (50 mg total) by mouth 3 (three) times a day if needed for severe pain. Max Daily Amount: 150 mg 86 tablet 2 Active oxyCODONE-acetami nophen (PERCOCET) 5-325 mg per tabletIndications :Chronic left-sided low back pain with sciatica, sciatica laterality unspecified Take 1 tablet by mouth every 8 (eight) hours if needed for severe pain. Max Daily Amount: 3 tablets 20 tablet Active traZODone (DESYREL) 50 mg tablet TAKE 1 TABLET BY MOUTH EVERY DAY AT NIGHT 28 tablet 2 Active pantoprazole (PROTONIX) 40 mg EC tablet TAKE 1 TABLET BY MOUTH TWICE A DAY DO NOT CRUSH, CHEW, OR SPLIT 60 tablet 5 Active ondansetron ODT (ZOFRAN-ODT) 8 mg disintegrating tabletIndications :Iron deficiency anemia, unspecified iron deficiency anemia type Dissolve 1 tablet (8 mg total) on top of the tongue every 8 (eight) hours if needed for nausea or vomiting for up to 7 days. 21 each 2 025 2024 Active cholecalciferol (VITAMIN D-3) 50 mcg (2,000 unit) capsule Take 1 capsule (2,000 Units total) by mouth 1 (one) time each day. 024 2024 Discontinued(R eorder) magnesium oxide 400 mg magnesium capsule Take 1 capsule by mouth 1 (one) time each day. 30 capsule 3 025 2024 Discontinued(R eorder) potassium chloride (KLOR-CON M20) 20 mEq CR tablet Take 1 tablet (20 mEq total) by mouth 1 (one) time each day. Tablet may be swallowed whole (do not crush/chew/suck on) OR broken in half and each half swallowed separately OR dissolved (whole tablet) in ~4 ounces of water (allow ~2 minutes to dissolve, stir well and administer immediately). 90 each 3 025 2024 Discontinued(R eorder) traZODone (DESYREL) 50 mg tablet TAKE 1 TABLET BY MOUTH EVERY DAY AT NIGHT 30 tablet 1 025 2024 Discontinued traMADoL (ULTRAM) 50 mg tabletIndications :Chronic back pain, unspecified back location, unspecified back pain laterality Take 1 tablet (50 mg total) by mouth 3 (three) times a day if needed for severe pain. Max Daily Amount: 150 mg 86 tablet 2 2024 Discontinued(R eorder) pantoprazole (PROTONIX) 40 mg EC tablet Take 1 tablet (40 mg total) by mouth 1 (one) time each day before breakfast. DO NOT CRUSH CHEW OR SPLIT 90 tablet 2 025 2024 Discontinued Active Problems Problem Noted Date Diagnosed Date Severe major depressive disorder ([facility] V24, [facility] [place] V28) 05/15/2025 Hypokalemia 03/20/2025 Cellulitis of right lower extremity 03/13/2025 Hypogammaglobulinemia ([facility] V24) 02/24/2025 Alcohol withdrawal ([facility] V24, [facility] V28) Tobacco use disorder 12/20/2024 Aspiration pneumonitis ([facility] V24, [facility] V28 ) 11/22/2024 Acute on chronic respiratory failure with hypoxia and hypercapnia ([facility] V24, [facility] V28) 11/21/2024 Encounter for smoking cessation counseling 11/21 Iron deficiency anemia 11/06/2024 Assessment & Plan (05/16/2025 5:51 PM EDT): I had long discussion with patient and her granddaughter at our previous visits and this 1 regarding colonoscopy and upper endoscopy for the anemia Recent imaging does not note anything worrisome like colon cancer or stomach lesion Upper GI has been planned for the nausea Patient has been hospitalized recently for COPD exacerbation She is followed by hematology and she believes she is having an iron infusion in the near future They understand the risk for missed diagnosis including malignancy without colonoscopy and upper endoscopy Assessment & Plan (11/27/2024 5:29 PM EDT): H&H in normal range after 1 unit blood transfusion and iron infusion Continue oral iron supplement twice daily Epistaxis should be addressed with ENT Patient high risk for colonoscopy and upper endoscopy at this time Risk of missed diagnosis including malignancy discussed Patient agrees with holding off on colonoscopy and upper endoscopy given risks especially with labs in normal range Plan to repeat CBC in 2 to 3 weeks Orders: CBC and differential; Future Anxiety 07/25/2024 Arthritis 07/25/2024 Chronic back pain 07/25/2024 Assessment & Plan (06/24/2025 10:23 PM EDT): Orders: oxyCODONE-acetaminophen (PERCOCET) 5-325 mg per tablet; Take 1 tablet by mouth every 8 (eight) hours if needed for severe pain. Max Daily Amount: 3 tablets Assessment & Plan (06/24/2025 10:23 PM EDT): Orders: traMADoL (ULTRAM) 50 mg tablet; Take 1 tablet (50 mg total) by mouth 3 (three) times a day if needed for severe pain. Max Daily Amount: 150 mg Assessment & Plan (09/23/2024 4:25 PM EST): Refer to Orthopedics Orders: Ambulatory referral to Orthopedic; Future COPD (chronic obstructive pu lmonary disease) ([facility] V24, [facility] V28) 07/25/2024 Assessment & Plan (06/24/2025 10:23 PM EDT): Assessment & Plan (10/14/2024 9:09 PM EST): Severe, progressive COPD, O2 dependent, progressive, ongoing tobacco use Depression 07/25/2024 HLD (hyperlipidemia) 07/25/2024 Assessment & Plan (06/24/2025 10:23 PM EDT): Assessment & Plan (04/11/2025 3:49 PM EDT): Continue with atorvastatin. Assessment & Plan (10/14/2024 9:09 PM EST): Primary hypertension 07/25/2024 Assessment & Plan (04/11/2025 3:49 PM EDT): Borderline controlled. Continue with diltiazem and furosemide. NSTEMI (non-ST elevated myoc ardial infarction) ([facility] V24, [facility] V28) 04/29/2024 Overview (04/11/2025): January 2024 - admitted to [facility] with elevated troponins likely demand in setting of pneumonia Hypercoagulable state ([facility] V24) 02/12/2024 LBBB (left bundle branch block) 02/12/2024 Assessment & Plan (10/14/2024 9:09 PM EST): No evident high-degree block Severe malnutrition ([facility] V24) 02/12/2024 Assessment & Plan (10/14/2024 9:09 PM EST): Possible impaired nutrition, consider checking nutritional parameters SOB (shortness of breath) 02/12/2024 Assessment & Plan (10/14/2024 9:09 PM EST): Multifactorial, largely due to severe COPD, deconditioning, possible superimposed diastolic CHF. Orders: Ambulatory referral to Cardiology furosemide (LASIX) 40 mg tablet; Take 1 tablet (40 mg total) by mouth 2 (two) times a day. Vitamin D deficiency 05/03/2022 Acute respiratory failure wi th hypoxia and hypercapnia ([facility] V24, [facility] V28) 02/25/2022 Asthma 02/25/2022 Assessment & Plan (06/24/2025 10:23 PM EDT): Chronic diastolic CHF (conge stive heart failure) ([facility] V24, [facility] V28) 02/25/2022 Overview (04/11/2025): March 2024 echocardiogram inpatient at showed preserved left ventricular systolic function LVEF 55 to 60%, no regional wall motion abnormalities, normal left atrial size, normal right atrial size, preserved RV size and systolic function, mild dilatation of the ascending aorta at 4.0 cm poorly differentiated aortic valve, mild mitral regurgitation and poorly visualized tricuspid and pulmonic valves Assessment & Plan (06/24/2025 10:23 PM EDT): Assessment & Plan (04/11/2025 3:49 PM EDT): Echocardiogram from March 2024 showed preserved LV systolic function. She has abdomial distention which may be part ascites. She will double her lasix for four days. Continue with furosemide. Consider adding SGLT2 inhibitor. We will update her echocardiogram. We reviewed heart failure management including low-sodium diet, symptom surveillance, daily weights and medication compliance. The patient is aware they may take extra diuretic for intermittent evidence of mild congestive signs and symptoms. If the increase of frequency of as needed diuretic becomes more regular than they will make our office aware. If the patient has weight gain over 3lbs in one day or 5lbs over several days, they are aware to contact our office. With any severe or sustained symptoms, they are aware to contact EMS via 911 and go to the emergency room. Orders: Transthoracic echocardiogram (TTE) complete with PRN contrast, bubble, strain, and 3D order panel; Future perflutren lipid microsphere (DEFINITY) 1.3 mL in sodium chloride 0.9% 8.7 mL injection Assessment & Plan (10/14/2024 9:09 PM EST): Will trial increased furosemide to 40 mg po BID qnd follow weights, edema and clinical parameters. Orders: Ambulatory referral to Cardiology furosemide (LASIX) 40 mg tablet; Take 1 tablet (40 mg total) by mouth 2 (two) times a day. Polysubstance abuse ([facility] V24, [facility] V28) 0 02/25/2022 Polysubstance dependence ([facility] V24, [facility] V 28) 02/25/2022 Resolved Problems Problem Noted Date Diagnosed Date Resolved Date COPD exacerbation ([facility] V24, [facility] V28) 5 01/27/2025 COPD exacerbation ([facility] V24, [facility] V28) 5 11/06/2024 Encounters Date Type Department Care Team Description 07/08/2025 2:15 PM EDT Office Visit [facility] Hematology Oncology [address] [place] [phone] Joslyn Vergara DO Hypogammaglobulinemia ([facility] V24) (Primary Dx); Iron deficiency anemia, unspecified iron deficiency anemia type; Lung mass 07/08/2025 Telephone Pulmonology - [place] [address] [phone] Aparna Contreras NP 07/08/2025 Telephone Pulmonology [facility] [address] [phone] Aparna Contreras NP 07/04/2025 3:10 PM EDT Hospital Encounter [facility] PET Scan [address] [place] [phone] Current smoker; Abnormal CT of the chest; Mass of upper lobe of right lung; Pulmonary nodule 1 cm or greater in diameter 07/03/2025 11:30 AM EDT - 07/03/2025 11:59 PM EDT Hospital Encounter [facility] Infusion Center [address] [facility] 2nd [place] [address] Joslyn Vergara DO Hypogammaglobulinemia ([facility] V24) (Primary Dx) Discharge Disposition: Home or Self Care 06/25/2025 2:39 PM EDT - 06/25/2025 11:59 PM EDT Hospital Encounter [facility] CT Scan [address] [place] [phone] Gait instability; Dizziness Discharge Disposition: Home or Self Care 06/24/2025 3:45 PM EDT Office Visit Internal Medicine - [place] 175 [facility] [address] [place] [phone] Francia Francois MD Cellulitis of lower extremity, unspecified laterality (Primary Dx); Edema, unspecified type; Mild intermittent asthma without complication; Mixed hyperlipidemia; Chronic obstructive pulmonary disease, unspecified COPD type (CMS/HCC V24, [facility] V28); Chronic diastolic CHF (congestive heart failure) ([facility] V24, [facility] V28); Chronic back pain, unspecified back location, unspecified back pain laterality; Chronic left-sided low back pain with sciatica, sciatica laterality unspecified; Encounter for subsequent annual wellness visit (AWV) in Medicare patient 06/23/2025 2:45 PM EDT Office Visit [facility] Hematology Oncology [address] [place] [phone] Joslyn Vergara DO Iron deficiency anemia, unspecified iron deficiency anemia type (Primary Dx); Hypogammaglobulinemia ([facility] V24); Gait instability; Dizziness 06/23/2025 Telephone Internal Medicine - [place] 175 [facility] [address] [place] [phone] Liset Fleming [place] 06/18/2025 Results Follow-Up Gastroenterology - [address] [facility] 299 [facility] [address] [place] [phone] Antonieta Martinez PA 06/16/2025 10:00 AM EDT - 06/16/2025 11:59 PM EDT Hospital Encounter [facility] Xray [address] [place] [phone] Nausea Discharge Disposition: Home or Self Care 06/16/2025 Telephone Pulmonology - [place] 175 [facility] [address] [place] [phone] Aparna Contreras NP 06/12/2025 2:45 PM EDT Office Visit Pulmonology [facility] 175 [facility] [address] [place] [address] Aparna Contreras NP Chronic obstructive pulmonary disease, unspecified COPD type (CMS/HCC V24, CMS/HCC V28) (Primary Dx); Chronic respiratory failure with hypoxia and hypercapnia (CMS/HCC V24, CMS/HCC V28); Polysubstance dependence (CMS/HCC V24, CMS/HCC V28); Current smoker; Abnormal CT of the chest 06/12/2025 Telephone Gastroenterology - 299 [facility] 299 [facility] [address] [place] [phone] Antonieta Martinez PA 06/09/2025 Telephone Internal Medicine [facility] [address] [address] Liset Fleming [place] 06/05/2025 1:45 PM EDT - 06/05/2025 11:59 PM EDT [facility] CT Scan [address] [place] [address] Incidental lung nodule, greater than or equal to 8mm Discharge Disposition: Home or Self Care 06/02/2025 Telephone Internal Medicine - [place] [address] [phone] Liset Fleming [place] 06/02/2025 Telephone Internal Medicine [facility] [address] [phone] Liset Fleming [place] 05/28/2025 Telephone Internal Medicine [facility] [address] [address] Liset [place] 05/28/2025 Telephone Internal Medicine [facility] [address] [phone] Liset Fleming [place] 05/22/2025 Telephone Internal Medicine [facility] 175 [facility] [address] [place] [phone] Francia Francois MD 05/19/2025 1:45 PM EDT Office Visit [facility] Hematology Oncology [address] [place] [phone] Joslyn Vergara DO Iron deficiency anemia, unspecified iron deficiency anemia type (Primary Dx) 05/16/2025 2:40 PM EDT Office Visit Gastroenterology - 299 [facility] 299 [facility] [address] [place] [phone] Antonieta Martinez PA Nausea (Primary Dx); Diarrhea of presumed infectious origin; Bloating; Other cirrhosis of liver ([facility] V24, [facility] V28); Abnormal CT scan; Iron deficiency anemia due to chronic blood loss 05/16/2025 Telephone Internal Medicine [facility] 175 [facility] [address] [place] [phone] Lonnie [place], [place] 05/15/2025 12:00 PM EDT Office Visit Internal Medicine [facility] [address] [phone] Francia Francois MD Chronic obstructive pulmonary disease, unspecified COPD type ([facility]/HCC V24, CMS/HCC V28) (Primary Dx); SOB (shortness of breath); Chronic diastolic CHF (congestive heart failure) ([facility] V24, [facility] V28); Severe major depressive disorder ([facility] V24, [facility] V28) 05/15/2025 Telephone Internal Medicine [facility] 175 [facility] [address] [place] [phone] Francia Francois MD 05/13/2025 9:00 AM EDT Ancillary Procedure [facility] - [facility] [address] [facility] [address] [place] [phone] Paroxysmal atrial fibrillation ([facility] V24, CMS/HCC V28) 05/13/2025 Telephone Internal Medicine [facility] 175 [facility] [address] [place] [phone] Francia Francois MD 05/13/2025 Telephone [facility] - [address] [place] [address] Rodrigo Jones MD 05/09/2025 Telephone Internal Medicine [facility] [address] [address] Francia Francois MD 05/09/2025 Telephone Internal Medicine [facility] [address] [phone] Francia Francois MD 05/09/2025 Telephone Internal Medicine [facility] [address] [phone] [place]et [place] 05/09/2025 [place] [facility] [address] [phone] [place] 05/08/2025 Telephone Internal Medicine [facility] [address] [phone] Francia Francois MD 05/07/2025 4:49 PM EDT - 05/07/2025 10:58 PM EDT Emergency [facility] Emergency [address] [place] [address] Angely Harden MD Ziebro, John, MD Generalized abdominal pain (Primary Dx) Discharge Disposition: Home or Self Care 04/28/2025 Telephone Internal Medicine [facility] [address] [phone] Liset [place] 04/17/2025 1:24 AM EDT - 04/19/2025 3:36 PM EDT Hospital Encounter [facility] [address] [place] [address] Justine Lee MD Shapiro, Benjamin, DO Kela, Kashyap Devendrabhai, MD Acute on chronic respiratory failure with hypoxia and hypercapnia (CMS/HCC V24, CMS/HCC V28) (Primary Dx); Rhinovirus infection; Enterovirus infection Discharge Disposition: Home-Health Care [facility] 04/17/2025 Telephone [facility] [address] [place] [address] Rodrigo Jones MD 04/16/2025 Telephone Internal Medicine [facility] [address] [facility] [address] [place] [phone] [place] 04/16/2025 Telephone Internal Medicine [facility] [address] [facility] [address] [place] [phone] Liset [place] 04/15/2025 Telephone Internal Medicine [facility] [address] [facility] [address] [place] [phone] [place] 04/11/2025 1:40 PM EDT Office Visit [facility] [address] [place] [address] Tony Whitt NP Paroxysmal atrial fibrillation (CMS/HCC V24, CMS/HCC V28) (Primary Dx); Chronic diastolic CHF (congestive heart failure) (CMS/HCC V24, CMS/HCC V28); Primary hypertension; Mixed hyperlipidemia 04/11/2025 10:00 AM EDT Office Visit Internal Medicine [facility] [address] [phone] Francia Francois MD Hematoma of left hand (Primary Dx) 04/10/2025 Telephone Internal Medicine [facility] [address] [phone] Francia Francois MD from Last 3 Months Immunizations Immunization Administration Dates Next Due Influenza Quadravalent, 0.5m l (Fluzone High-dose) 65yo and older 08/20/2022,10/12/2021,07/24/2020 Influenza trivalent, 0.5mL ( Fluad) 65yo and older 06/26/2024 Influenza trivalent, with pr eservative (Fluzone; Afluria) 6mo and older 07/18/2019,07/12/2017,08/10/2016 Pneumococcal conjugate 13 va lent (Prevnar 13, PCV13) 2mo and older 11/05/2019 Surgical History Surgery Date Site/Laterality Comments TUBAL LIGATION PROCEDURE: HISTORICAL TUBAL LIGATION Medical History Medical History Date Comments Depression DX:Depression Anxiety DX:Anxiety HLD (hyperlipidemia) DX:HLD (hyp erlipidemia) HTN (hypertension) DX:HTN (hyper tension) Chronic back pain DX:Chronic isra k pain Arthritis DX:Arthritis COPD (chronic obstructive pu lmonary disease) ([facility] V24, [facility] V28) DX:COPD (chronic o bstructive pulmonary disease) ([facility]) Tobacco abuse disorder DX:Tobacc o abuse disorder Vitamin D deficiency DX:Vitamin D deficiency Alcoholic cirrhosis ([facility] V24, [facility] V28) Family History Medical History Relation Name Comments Alcohol/Drug Daughter Heart attack Father Breast cancer Sister 1 Alcohol abuse Son Relation Name Status Comments Brother Daughter Father Maternal Grandmother Mother Sister 1 Sister 2 Alive Sister 3 Sister 4 Sister 5 Alive Son Social History Tobacco Use Types Packs/Day Years Used Date Smoking Tobacco: Every Day Cigarettes 0.5 57.3 Started: 1970 Smokeless Tobacco: Never Tobacco Cessation:Ready to Q uit: Not Asked; Counseling Given: Not Answered Comments:Pt is trying to quit smoking. Has not smoked x 1 wk. [...] ed Within the last 3 months, [place] w many times did you visit the [...] care for your loved ones. For example, early childhood lead teacher or elderly care for an older adult? [...] Orientation Straight 11/05/2024 12 :39 PM EST Obstetrics History Last Filed Vital Signs Vital Sign Reading Time Taken Comments Blood Pressure 117/51 07/08/2025 2:31 PM EDT Pulse 92 07/08/2025 2:31 PM EDT Temperature 36.2 C (97.2 F) 07/08/2025 2:31 PM EDT Respiratory Rate 18 07/03/2025 2:35 PM EDT Oxygen Saturation 96% 07/08/2025 2:31 PM EDT 3L O2 Inhaled Oxygen Concentration - - Weight 54.4 kg (120 lb) 07/08/2025 2:31 PM EDT Height 160 cm (5' 3 ) 07/08/2025 2:31 PM EDT Body Mass Index 21.26 07/08/2025 2:31 PM EDT Plan of Treatment Upcoming Encounters Date Type Department Care Team (Latest Contact Info) Description 07/24/2025 3:30 PM EST Evaluation [facility] [place] [address] [facility] [address] [place] [address] Juvencio Macdonald, PT 07/25/2025 1:30 PM EST Ancillary Procedure [facility] [address] [facility] [address] [place] [phone] 08/14/2025 11:00 AM EST Appointment [facility] [address] [facility] 2nd [place] [phone] 09/16/2025 4:00 PM EST Office Visit Pulmonology - [place] [address] [facility] [address] [place] [phone] Aparna Contreras, EVARISTO [address] [place] [phone] 10/14/2025 2:45 PM EST Office Visit Internal Medicine - [place] [address] [facility] [address] [place] [phone] Francia Francois MD [address] [place] [phone] Health Maintenance Due Date Last Done Comments Breast Cancer Screening 1955 Colorectal Cancer Screening: Colonoscopy 1955 DTaP,Tdap,and Td Vaccines (1 - Tdap) 1972 Hepatitis A Vaccines (1 of 2 - Risk 2-dose series) 1972 RSV Immunization Adult Patients (1 - Risk 50-74 years 1-dose series) 2003 Zoster Vaccines (1 of 2) 2003 Hepatitis B Vaccines (1 of 3 - Risk 3-dose series) 2013 Pneumococcal Vaccine: 50+ Years (2 of 2 - PPSV23, PCV20, or PCV21) 12/31/2019 11/05/2019 Osteoporosis Screening (Bone Density Screening) 08/20/2022 Lung Cancer Screening (Low Dose CT) 08/23/2022 08/23/2021 COVID-19 Vaccine ( season) 2025 12/06/2022, 10/12/2021, 02/15/2021, Additional history exists Influenza Vaccine (#1) 2025 , 08/20/2022, 10/12/2021, Additional history exists Social Influencers of Health Screening 03/03/2026 03/03/2025 Hypertension/CHF/CAD Annual BMP Blood Test 05/07/2026 05/07/2025, 04/19/2025, 04/18/2025, Additional history exists Medicare Annual Wellness Visit 06/24/2026 06/24/2025 Falls Risk Assessment 07/03/2026 07/03/2025 Cholesterol Screening (Lipid Panel) 04/28/2027 04/28/2022 Depression Screening Completed 10/07/2024 Hepatitis C Screening Completed 11/27/2024 HIB Vaccines Aged Out No longer eligi ble based on patient's age to complete this topic HPV Vaccines Aged Out No longer eligi ble based on patient's age to complete this topic IPV Vaccines Aged Out No longer eligi ble based on patient's age to complete this topic MMR Vaccines Aged Out No longer eligi ble based on patient's age to complete this topic Meningococcal ACWY Vaccine Aged Out N o longer eligible based on patient's age to complete this topic Meningococcal B Vaccine Aged Out No l onger eligible based on patient's age to complete this topic RSV Immunization Patients Under 20 months Aged Out No longer eligible based on patient's age to complete this topic Varicella Vaccines Aged Out No longer eligible based on patient's age to complete this topic Goals Goal Patient Goal Type Associated Problems Recent Progress Patient-Stated? Author Keep patient safe at home General Vicky Almanza, RN Note: 05/19/25 reviewed safety with regards to smoking and O2 use. Monique is aware of risks and reminds Rosy to not smoke with O2. Procedures Procedure Name Priority Date/Time Associated Diagnosis Comments PET CT SKULL TO MID THIGH INITIAL Routine 07/04/2025 5:26 PM EDT Current smoker Abnormal CT of the chest Mass of upper lobe of right lung Pulmonary nodule 1 cm or greater in diameter CT HEAD WO AND W CONTRAST STAT 06/25/2025 3:20 PM EDT Gait instability Dizziness XR UGI W AIR CONTRAST Routine 06/16/2025 10:[address] CHEST WO CONTRAST Routine 06/05/2025 2:23 PM EDT Incidental lung nodule, greater than or equal to 8mm IMMUNOGLOBULINS IGG, IGA, IGM, IGE Routine 05/19/2025 2:37 PM EDT Iron deficiency anemia, unspecified iron deficiency anemia type FERRITIN Routine 05/19/2025 2:37 PM EDT Iron deficiency anemia, unspecified iron deficiency anemia type IRON AND TIBC Routine 05/19/2025 2:37 PM EDT Iron deficiency anemia, unspecified iron deficiency anemia type CARDIAC TRANSPORTATION DISPATCHER W/ CONNECTION (MCOT) Routine 05/14/2025 1:00 PM EDT Paroxysmal atrial fibrillation (CMS/HCC V24, CMS/HCC V28) ECG ANNOTATED 05/09/2025 LACTATE STAT 05/07/2025 8:16 PM EDT RESPIRATORY VIRUS PANEL MOLECULAR STUDY STAT 05/07/2025 8:16 PM EDT XR CHEST 2 VIEWS STAT 05/07/2025 7:49 PM EDT TROPONIN I HIGH SENSITIVITY Timed 05/07/2025 7:35 PM EDT ECG 12-LEAD STAT 05/07/2025 7:[address] ABDOMEN PELVIS W CONTRAST STAT 05/07/2025 6:41 PM EDT GALINDO URINE CULTURE TUBE STAT 05/07/20 6:36 PM EDT URINALYSIS WITH REFLEX MICROSCOPIC AND CULTURE STAT 05/07/2025 6:36 PM EDT URINALYSIS WITH REFLEX MICROSCOPIC AND CULTURE STAT 05/07/2025 6:36 PM EDT CULTURE URINE STAT 05/07/2025 6:36 PM EDT LIPASE STAT 05/07/2025 5:25 PM EDT HEPATIC FUNCTION PANEL STAT 5:25 PM EDT CBC WITH AUTO DIFFERENTIAL STAT 05/07/2025 5:25 PM EDT TROPONIN I HIGH SENSITIVITY Timed 05/07/2025 5:25 PM EDT B-TYPE NATRIURETIC PEPTIDE STAT 05/07/2025 5:25 PM EDT BASIC METABOLIC PANEL STAT 05/07/2025 5:25 PM EDT CBC AND DIFFERENTIAL STAT 05/07/2025 5:25 PM EDT ECG ANNOTATED 04/21/2025 HOME O2 EVAL (DESATURATION SCREEN) Routine 04/19/2025 10:28 AM EDT CBC WITH AUTO DIFFERENTIAL Routine 04/19/2025 6:06 AM EDT MAGNESIUM Routine 04/19/2025 6:06 AM EDT CBC AND DIFFERENTIAL Routine 04/19/2025 6:06 AM EDT BASIC METABOLIC PANEL Timed 04/19/2025 6:06 AM EDT OXYGEN THERAPY, ADULT Routine 04/18/2025 8:02 AM EDT PEP THERAPY Routine 04/18/2025 7:39 AM EDT COMPLETE BLOOD COUNT Timed 04/18/2025 6:33 AM EDT HEPATIC FUNCTION PANEL Routine 6:33 AM EDT BASIC METABOLIC PANEL Timed 04/18/2025 6:33 AM EDT OXYGEN THERAPY, ADULT Routine 04/18/2025 6:32 AM EDT OXYGEN THERAPY, ADULT Routine 04/18/2025 6:32 AM EDT OXYGEN THERAPY, ADULT Routine 04/18/2025 6:32 AM EDT VENOUS BLOOD GAS STAT 04/17/2025 4:35 AM EDT RESPIRATORY VIRUS PANEL MOLECULAR STUDY STAT 04/17/2025 4:33 AM EDT TROPONIN I HIGH SENSITIVITY Timed 04/17/2025 4:23 AM EDT ECG 12-LEAD STAT 04/17/2025 4:14 AM EDT XR CHEST 1 VIEW STAT 04/17/2025 3:25 AM EDT MAGNESIUM Add-On 04/17/2025 2:44 AM EDT CBC WITH AUTO DIFFERENTIAL STAT 04/17/2025 2:44 AM EDT TROPONIN I HIGH SENSITIVITY Timed 04/17/2025 2:44 AM EDT COMPREHENSIVE METABOLIC PANEL STAT 04/17/2025 2:44 AM EDT CBC AND DIFFERENTIAL STAT 04/17/2025 2:44 AM EDT B-TYPE NATRIURETIC PEPTIDE STAT 04/17/2025 2:44 AM EDT VENOUS BLOOD GAS STAT 04/17/2025 2:44 AM EDT ECG 12-LEAD Routine 04/17/2025 2:41 AM EDT HEPATITIS C ANTIBODY Routine 11/27/2024 3:39 PM EDT Cryptogenic cirrhosis of liver (CMS/HCC V24, CMS/HCC V28) LIPID PANEL Routine 04/28/2022 CT LUNG SCREENING LOW DOSE Routine 08/23/2021 4:42 PM EST Personal history of nicotine dependence from Last 3 Months or Most Recently Relevant to Health Maintenance Results * PET CT Skull to Mid [...] Signed Date: 07/08/2025 10:56 ET Workstation ID: [id number] Transcribed By: Self Edit Transcribed Date: 07/08/2025 [...] Signed Date: 07/08/2025 10:56 ET Workstation ID: [id number] Transcribed By: Self Edit Transcribed Date: 07/08/2025 09:59 ET us Aparna Contreras SQL SERVER DBA IMG NM PROCEDURES Final Result * CT Head wo and w Contrast (06/25/2025 3:20 PM EDT) Anatomical Region Laterality Modality Head and Neck Computed Tomogra phy 06/25/2025 3:48 PM EDT Impressions 06/25/2025 3:52 PM EDT Impression: 1. No acute hemorrhage or intracranial mass effect. 2. Moderate, nonspecific deep white matter changes compatible with chronic microvascular ischemia in a patient of this age. 3. No abnormal intracranial enhancement. T[place]ad [place] ([id number]) -------- FINAL REPORT -------- Dictated By: Ml Solorzano Dictated Date: 06/25/2025 15:48 ET Assigned Physician: Ml Solorzano Reviewed and Electronically Signed By: Ml Solorzano Signed Date: 06/25/2025 15:52 ET Workstation ID: [id number] Transcribed By: Self Edit Transcribed Date: 06/25/2025 15:48 ET Narrative 06/25/2025 3:52 PM EDT History: Dizziness. Gait instability. Comparison: 06/25/24 Technique: Contiguous axial images were obtained at 2.5 mm intervals through the posterior fossa and at 5 mm intervals through the remainder of the brain both before and following the uneventful intravenous administration of 90 cc Isovue-370. DLP: 1965.86 mGy/cm GE Nest Labspeed VCT Iterative reconstruction technique Findings: Moderate generalized [...] are clear. Minimal partial opacification of the left mastoid air cells is seen. The calvarium is intact. Procedure Note Ml Solorzano MD - 06/25/2025 History: Dizziness. Gait instability. Comparison: 06/25/24 Technique: Contiguous axial images were obtained at 2.5 mm intervalsthrough the posterior fossa and at 5 mm intervals through the remainder ofthe brain both before and following the uneventful intravenousadministration of 90 cc Isovue-370. DLP: 1965.86 mGy/cm [employer]peed VCT Iterative reconstruction technique Findings: Moderate generalized cerebral volume loss is again demonstrated. Patchydeep white matter hypodensity is present bilaterally, unaccompanied bymass effect or hemorrhage and without significant change. No abnormal intra- or extra-axial masses or fluid collections are seen.There is no evidence of acute intracranial hemorrhage. No abnormal brain parenchymal or meningeal enhancement is seen followingcontrast administration. The included portions of the paranasal sinuses are clear. Minimal partialopacification of the left mastoid air cells is seen. The calvarium isintact. IMPRESSION: Impression: 1. No acute hemorrhage or intracranial mass effect. 2. Moderate, nonspecific deep white matter changes compatible with chronicmicrovascular ischemia in a patient of this age. 3. No abnormal intracranial enhancement. [place] ([id number]) -------- FINAL REPORT -------- Dictated By: Ml Solorzano Dictated Date: 06/25/2025 15:48 ET Assigned Physician: Ml Solorzano Reviewed and Electronically Signed By: Ml Solorzano Signed Date: 06/25/2025 15:52 ET Workstation ID: [id number] Transcribed By: Self Edit Transcribed Date: 06/25/2025 15:48 ET us Joslyn Vergara DO IMG CT PROCEDURES Fin al Result * XR UGI w Air Contrast (06/16/2025 10:55 AM EDT) Anatomical Region Laterality Modality Body Radiographic Lisa ging 06/16/2025 2:44 PM EDT Impressions 06/17/2025 3:34 PM EDT Very limited exam as described above given patient limitations related to mobility and oxygen dependence. Recommend evaluation with CT abdomen pelvis with IV/oral contrast imaging if clinical concern warrants. -------- FINAL REPORT -------- Dictated By: Leeann Salomon Dictated Date: 06/16/2025 14:44 ET Assigned Physician: Edy Salazar Reviewed and Electronically Signed By: Edy Salazar Signed Date: 06/17/2025 15:34 ET Workstation ID: [id number] Transcribed By: Self Edit Transcribed Date: 06/16/2025 15:12 ET Resident/PA/SQL SERVER DBA: Leeann Salomon Narrative 06/17/2025 3:34 PM EDT FINDINGS: Double contrast UGI performed. Very limited exam due to patient immobility, intolerance to lying flat. COMPARISON: No prior UGI imaging HISTORY: Patient is a 70-year-old female who comes in today on oxygen, mobility limited. States chronic nausea. CUSTOMER SUPPORT EXECUTIVE radiographs: Parking Enforcement Officer AP radiograph of the abdomen obtained. Bowel gas pattern is nonobstructive. There is a radiopacity in the visualized right lower lobe possibly extending along the oblique fissure. This is also seen on CT chest imaging from June 05, 2025. Left lower lobe is grossly clear. There are bony degenerative changes. FINDINGS: Effervescent crystals were administered orally. Thick barium was then administered orally under fluoroscopic control. Limited evaluation of thoracic esophagus demonstrates normal distensibility and unremarkable mucosal pattern. There is no hiatal hernia. Visualization of gastric mucosa is limited due to patient's inability to lay prone or turn on the table. No grossly evident gastric ulceration or mass, however evaluation for these is again very limited. No gastroesophageal reflux was visualized. Air kerma: 10.09 mGy Procedure Note Marie, Parshant, MD - 06/17/2025 FINDINGS: Double contrast UGI performed. Very limited exam due to patientimmobility, intolerance to lying flat. COMPARISON: No prior UGI imaging HISTORY: Patient is a 70-year-old female who comes in today on oxygen,mobility limited. States chronic nausea. CUSTOMER SUPPORT EXECUTIVE radiographs: Parking Enforcement Officer AP radiograph of the abdomen obtained. Bowel gaspattern is nonobstructive. There is a radiopacity in the visualized rightlower lobe possibly extending along the oblique fissure. This is also seenon CT chest imaging from June 05, 2025. Left lower lobe is grosslyclear. There are bony degenerative changes. FINDINGS: Effervescent crystals were administered orally. Thick barium wasthen administered orally under fluoroscopic control. Limited evaluation of thoracic esophagus demonstrates normaldistensibility and unremarkable mucosal pattern. There is no hiatalhernia. Visualization of gastric mucosa is limited due to patient'sinability to lay prone or turn on the table. No grossly evident gastriculceration or mass, however evaluation for these is again very limited. Nogastroesophageal reflux was visualized. Air kerma: 10.09 mGy IMPRESSION: Very limited exam as described above given patient limitations related tomobility and oxygen dependence. Recommend evaluation with CT abdomenpelvis with IV/oral contrast imaging if clinical concern warrants. -------- FINAL REPORT -------- Dictated By: Leeann Salomon Dictated Date: 06/16/2025 14:44 ET Assigned Physician: Edy Salazar Reviewed and Electronically Signed By: Edy Salazar Signed Date: 06/17/2025 15:34 ET Workstation ID: [id number] Transcribed By: Self Edit Transcribed Date: 06/16/2025 15:12 ET Resident/PA/SQL SERVER DBA: Leeann Salomon Antonieta GREENWOOD IMG FLUOROSCOPY PROCEDURES F inal Result * CT Chest wo Contrast (06/05/2025 2:23 PM EDT) Anatomical Region Laterality Modality Body Computed Tomogra phy 06/12/2025 6:45 PM EDT Impressions 06/12/2025 6:57 PM EDT Multiple irregular parenchymal abnormalities in the lungs as described. This represents significant interval worsening. These are nonspecific and may be infectious or inflammatory. The distribution includes abnormality surrounding the airways and vessels. Correlate with any history of vasculitis. Neoplasm is not excluded. Pulmonary nodule recommendation: Pulmonary consultation is recommended. Consider staging PET-CT and/or tissue sampling. -------- FINAL REPORT -------- Dictated By: Maykel Brooks Dictated Date: 06/12/2025 18:45 ET Assigned Physician: Maykel Brooks Reviewed and Electronically Signed By: Maykel Brooks Signed Date: 06/12/2025 18:57 ET Workstation ID: [id number] Transcribed By: Self Edit Transcribed Date: 06/12/2025 18:45 ET Narrative 06/12/2025 6:57 PM EDT EXAMINATION: CT CHEST WITHOUT CONTRAST CLINICAL INFORMATION: Abnormal x-ray. Report of chest x-ray 05/07/25 indicates new she opacity right upper lobe. COMPARISON: Portions of previous CT 01/23/25 TECHNIQUE: Multidetector CT. Examination of the chest. Examination of the chest without IV contrast. Reformatting in the coronal and sagittal planes. DLP: 175 mGy-cm Dose optimization was performed including the use of low-dose iterative reconstruction technique with automatic exposure control based on patient size. Type of contrast: None Volume of IV contrast: None Volume of contrast discarded: 0 mL FINDINGS: LUNG: The trachea is patent. There is some mild narrowing of the bronchus intermedius. There are multiple irregular parenchymal abnormalities. There are peripheral irregular densities in the right apex. There is a confluent abnormality with volume loss in the right upper lobe centrally. This is a new finding. Napper Grinder image 06/05/25-4.7 x 2.2 cm (3/72) There is extensive abnormality in the middle lobe extending to the fissure. Napper Grinder image 06/05/25-2.3 x 1.9 cm (3/148) There are multiple irregular solid nodules in the lower lobes some of which are gas containing centrally. There are areas of airway thickening. There is an irregular mass or nodule in the medial left upper lobe. Napper Grinder image 06/05/25-1.4 x 1.1 cm (3/68) There are multiple abnormalities in the left lower lobe including some nodules surrounding dilated airways posteromedially. MEDIASTINUM: There are no enlarged mediastinal or hilar lymph nodes. No suspicious abnormality of the esophagus CARDIAC: The heart is not enlarged. No pericardial fluid or thickening. There is calcification in the region of the aortic valve and mitral annulus. CORONARY CALCIFICATION: There are moderate coronary calcifications. VASCULAR: The central pulmonary arteries are prominent. There is extensive arterial calcification. PLEURA: Multiple opacities extend to the pleural reflections. There is no significant pleural fluid. There is no pneumothorax. AXILLA/CHEST WALL: There are no enlarged axillary lymph nodes. No chest wall mass demonstrated VISUALIZED UPPER ABDOMEN: There is cholelithiasis. There is low attenuating nodularity of the adrenal glands probably unchanged since 01/23/25. MUSCULOSKELETAL: No suspicious focal bony lesion. Procedure Note Maykel Brooks MD - 06/12/2025 EXAMINATION: CT CHEST WITHOUT CONTRAST CLINICAL INFORMATION: Abnormal x-ray. Report of chest x-ray 05/07/25 indicates new she opacityright upper lobe. COMPARISON: Portions of previous CT 01/23/25 TECHNIQUE: Multidetector CT. Examination of the chest. Examination of the chest without IV contrast. Reformatting in the coronal and sagittal planes. DLP: 175 mGy-cm Dose optimization was performed including the use of low-dose iterativereconstruction technique with automatic exposure control based on patientsize. Type of contrast: None Volume of IV contrast: None Volume of contrast discarded: 0 mL FINDINGS: LUNG: The trachea is patent. There is some mild narrowing of the bronchusintermedius. There are multiple irregular parenchymal abnormalities. There are peripheral irregular densities in the right apex. There is aconfluent abnormality with volume loss in the right upper lobe centrally.This is a new finding. Napper Grinder image 06/05/25-4.7 x 2.2 cm (72) There is extensive abnormality in the middle lobe extending to thefissure. Napper Grinder image 06/05/25-2.3 x 1.9 cm () There are multiple irregular solid nodules in the lower lobes some ofwhich are gas containing centrally. There are areas of airwaythickening. There is an irregular mass or nodule in the medial left upper lobe.Napper Grinder image 06/05/25-1.4 x 1.1 cm () There are multiple abnormalities in the left lower lobe including somenodules surrounding dilated airways posteromedially. MEDIASTINUM: There are no enlarged mediastinal or hilar lymph nodes. Nosuspicious abnormality of the esophagus CARDIAC: The heart is not enlarged. No pericardial fluid or thickening.There is calcification in the region of the aortic valve and mitralannulus. CORONARY CALCIFICATION: There are moderate coronary calcifications. VASCULAR: The central pulmonary arteries are prominent. There is extensivearterial calcification. PLEURA: Multiple opacities extend to the pleural reflections. There is nosignificant pleural fluid. There is no pneumothorax. AXILLA/CHEST WALL: There are no enlarged axillary lymph nodes. No chestwall mass demonstrated VISUALIZED UPPER ABDOMEN: There is cholelithiasis. There is lowattenuating nodularity of the adrenal glands probably unchanged since01/23/25. MUSCULOSKELETAL: No suspicious focal bony lesion. IMPRESSION: Multiple irregular parenchymal abnormalities in the lungs as described.This represents significant interval worsening. These are nonspecific andmay be infectious or inflammatory. The distribution includes abnormalitysurrounding the airways and vessels. Correlate with any history ofvasculitis. Neoplasm is not excluded. Pulmonary nodule recommendation: Pulmonary consultation is recommended.Consider staging PET-CT and/or tissue sampling. -------- FINAL REPORT -------- Dictated By: Maykel Brooks Dictated Date: 06/12/2025 18:45 ET Assigned Physician: Maykel Brooks Reviewed and Electronically Signed By: Maykel Brooks Signed Date: 06/12/2025 18:57 ET Workstation ID: [id number] Transcribed By: Self Edit Transcribed Date: 06/12/2025 18:45 ET us Aparna Contreras SQL SERVER DBA IMG CT PROCEDURES Final Result * (ABNORMAL) Immunoglobulins IgG, IgA, IgM, IgE (05/19/2025 2:37 PM EDT) Total IgG 306(L) 549 - 1,584 mg/dL LAB CHEMISTRY METHOD 05/19/2025 6:48 PM EDT [facility] IgA 109 61 - 348 mg/dL LAB CHEMISTRY METHOD 05/19/2025 6:48 PM EDT [facility] IgM 26 23 - 259 mg/dL LAB CHEMISTRY METHOD 05/19/2025 6:48 PM EDT [facility] IgE 2.9 0.0 - 158.0 I Unit/mL LAB CHEMISTRY METHOD 05/19/2025 6:48 PM EDT [facility] Blood Venous blood specimen / Unknown Venipuncture / Unknown 05/19/2025 2:37 PM EDT 05/19/2025 4:30 PM EDT Joslyn Vergara DO LAB BLOOD ORDERABLES Final Result Performing Organization Address [facility]/ZIP Co de Phone Number [facility] [address] [place] [address], [place] [phone] * (ABNORMAL) Iron and TIBC (05/19/2025 2:37 PM EDT) Iron 166(H) 40 - 150 mcg/dL LAB CHEMISTRY METHOD 05/19/2025 5:15 PM EDT [facility] TIBC 282 250 - 450 mcg/dL LAB CHEMISTRY METHOD 05/19/2025 5:15 PM EDT [facility] Iron Saturation 59(H) 15 - 50 % LAB CHEMISTRY METHOD 05/19/2025 5:15 PM EDT [facility] Blood Venous blood specimen / Unknown Venipuncture / Unknown 05/19/2025 2:37 PM EDT 05/19/2025 4:30 PM EDT Joslyn Vergara DO LAB BLOOD ORDERABLES Final Result [facility] [address] [place] [address], [place] [phone] * Ferritin (05/19/2025 2:37 PM EDT) Ferritin 94 8 - 252 ng/mL LAB CHEMISTRY METHOD 05/19/2025 5:15 PM EDT [facility] Blood Venous blood specimen / Unknown Venipuncture / Unknown 05/19/2025 2:37 PM EDT 05/19/2025 4:30 PM EDT Joslyn Vergara DO LAB BLOOD ORDERABLES Final Result [facility]) [facility] [address] [place] [address], [place] [phone] * CARDIAC TRANSPORTATION DISPATCHER W/ CONNECTION (MCOT) (05/14/2025 1:00 PM EDT) Anatomical Region Laterality Modality Cardiac Diagnost ic Impressions 06/02/2025 6:49 AM EDT 1. The predominant rhythm was sinus. 2. The average heart rate was 96 bpm, minimum heart rate was 79 bpm, maximum heart rate was 126 bpm. 3. Total VE burden: 0.6% consisting of singles. 4. Total SVE burden: 2.8% consisting of singles, & SVE Couplets. 5. There were 0 patient triggered symptomatic events. Narrative 06/02/2025 6:49 AM EDT [facility] DI[facility]ST[facility]ING DEPARTMENT [address] [place] [id number] TEL: FAX: TYPE OF TEST 14 day ROCT monitor. DATES OF MONITORIN05/13/25- 05/27/25 REQUESTING PHYSICIAN: Rodrigo Whitt NP PRIMARY CARE PROVIDER: Francia Francois MD INDICATION: Paroxysmal Atrial Fibrillation us Tony Whitt NP CV CARDIAC SERVICES PROCEDU RES Final Result * ECG-Annotated (05/09/2025) Only the most recent of2 resultswithin the time period is included. us Provider Onbase MD ECG ORDERABLES Final Result * Respiratory virus panel molecular study (05/07/2025 8:16 PM EDT) Only the most recent of2 resultswithin the time period is included. Pathologist [facility] Adenovirus Detection by PCR Not Detected Not Detected LAB MICROBIOLOGY METHOD 05/07/2025 10:04 PM EDT [facility] Influenza A PCR Not Detected Not Detected LAB MICROBIOLOGY METHOD 05/07/2025 10:04 PM EDT [facility] Influenza B PCR Not Detected Not Detected LAB MICROBIOLOGY METHOD 05/07/2025 10:04 PM EDT [facility] Coronavirus 229E Not Detected Not Detected LAB MICROBIOLOGY METHOD 05/07/2025 10:04 PM EDT [facility] Coronavirus HKU1 Not Detected Not Detected LAB MICROBIOLOGY METHOD 05/07/2025 10:04 PM EDT [facility] Coronavirus OC43 Not Detected Not Detected LAB MICROBIOLOGY METHOD 05/07/2025 10:04 PM EDT [facility] Coronavirus NL63 Not Detected Not Detected LAB MICROBIOLOGY METHOD 05/07/2025 10:04 PM EDT [facility] Parainfluenza Virus 1 Not Detected Not Detected LAB MICROBIOLOGY METHOD 05/07/2025 10:04 PM EDT [facility] Parainfluenza Virus 2 Not Detected Not Detected LAB MICROBIOLOGY METHOD 05/07/2025 10:04 PM EDT [facility] Parainfluenza Virus 3 Not Detected Not Detected LAB MICROBIOLOGY METHOD 05/07/2025 10:04 PM EDT [facility] Parainfluenza Virus 4 Not Detected Not Detected LAB MICROBIOLOGY METHOD 05/07/2025 10:04 PM EDT [facility] RSV PCR Not Detected Not Detected LAB MICROBIOLOGY METHOD 05/07/2025 10:04 PM EDT [facility] Human Metapneumovirus A and B Not Detected Not Detected LAB MICROBIOLOGY METHOD 05/07/2025 10:04 PM EDT [facility] Rhinovirus/Entero virus Not Detected Not Detected LAB MICROBIOLOGY METHOD 05/07/2025 10:04 PM EDT [facility] Bordetella pertussis Not Detected Not Detected LAB MICROBIOLOGY METHOD 05/07/2025 10:04 PM EDT [facility] Bordetella parapertussis Not Detected Not Detected LAB MICROBIOLOGY METHOD 05/07/2025 10:04 PM EDT [facility] Mycoplasma pneumo by PCR Not Detected Not Detected LAB MICROBIOLOGY METHOD 05/07/2025 10:04 PM EDT [facility] Chlamydia pneumoniae Not Detected Not Detected LAB MICROBIOLOGY METHOD 05/07/2025 10:04 PM EDT [facility] SARS COV-2 Not Detected Not Detected LAB MICROBIOLOGY METHOD 05/07/2025 10:04 PM EDT [facility] Swab Both anterior nares / Unknown Non-blood Collection / Unknown 05/07/2025 8:16 PM EDT 05/07/2025 8:33 PM EDT [facility] - 05/07/2025 10:04 PM EDT Testing was performed using the [employer] Respiratory Pathogen PCR Assay. All results must be correlated with the clinical findings. Results should not be used as the sole basis for diagnosis. False Negative results may occur from the presence of sequence variants in the region targeted by the assay or the presence of inhibitors. Results may be affected by concurrent antiviral/antimicrobial therapy or levels of organisms that are below the limit of detection. Rodrigo Alfaro MD LAB MICROBIOLOGY - GENERAL ORDER TRESA Final Result [facility] [address] [place] [address], * Lactate (05/07/2025 8:16 PM EDT) Lactate 0.6 0.4 - 2.0 mmol/L LAB CHEMISTRY METHOD 05/07/2025 9:58 PM EDT [facility] Blood Venous blood specimen / Unknown Venipuncture / Unknown 05/07/2025 8:16 PM EDT 05/07/2025 9:18 PM EDT us Rodrigo Alfaro MD LAB BLOOD ORDERABLES Final Resul t [facility] [address] [place] [address], * XR Chest 2 Views (05/07/2025 7:49 PM EDT) Anatomical Region Laterality Modality Body Radiographic Lisa ging 05/08/2025 8:53 AM EDT Impressions 05/08/2025 8:55 AM EDT FINDINGS/IMPRESSION: New patchy opacity in the right upper lobe suspicious for pneumonia. Chest radiograph recommended in 6-8 weeks to ensure resolution. No pleural effusion or pneumothorax. Cardiac silhouette is normal in size. Degenerative changes seen throughout the bones. -------- FINAL REPORT -------- Dictated By: DAMON CONDON Dictated Date: 05/08/2025 08:53 ET Assigned Physician: DAMON CONDON Reviewed and Electronically Signed By: DAMON CONDON Signed Date: 05/08/2025 08:55 ET Workstation ID: [id number] Transcribed By: Self Edit Transcribed Date: 05/08/2025 08:53 ET Narrative 05/08/2025 8:55 AM EDT XR CHEST 2 VIEWS INDICATION: Dyspnea TECHNIQUE: XR CHEST 2 VIEWS COMPARISON: 04/17/2025 Procedure Note Damon Condon MD - 05/08/2025 XR CHEST 2 VIEWS INDICATION: Dyspnea TECHNIQUE: XR CHEST 2 VIEWS COMPARISON: 04/17/2025 IMPRESSION: FINDINGS/IMPRESSION: New patchy opacity in the right upper lobe suspiciousfor pneumonia. Chest radiograph recommended in 6-8 weeks to ensureresolution. No pleural effusion or pneumothorax. Cardiac silhouette isnormal in size. Degenerative changes seen throughout the bones. -------- FINAL REPORT -------- Dictated By: DAMON CONDON Dictated Date: 05/08/2025 08:53 ET Assigned Physician: DAMON CONDON Reviewed and Electronically Signed By: DAMON CONDON Signed Date: 05/08/2025 08:55 ET Workstation ID: [id number] Transcribed By: Self Edit Transcribed Date: 05/08/2025 08:53 ET Kemar Noyola MD IMG XR PROCEDURES Final Result * Troponin I high sensitivity (05/07/2025 7:35 PM EDT) Only the most recent of4 resultswithin the time period is included. [facility] High Sensitivity Troponin I 28 <=54 ng/L LAB CHEMISTRY METHOD 05/07/2025 8:32 PM EDT [facility] Blood Venous blood specimen / Unknown Venipuncture / Unknown 05/07/2025 7:35 PM EDT 05/07/2025 7:52 PM EDT Narrative [facility] - 05/07/2025 8:32 PM EDT High levels of biotin in samples may falsely decrease hsTroponin values. Use caution when interpreting hsTroponin results in patients taking biotin who exhibit renal impairment (eGFR <60) or in patients taking more than 20 mg/day of biotin. Kemar Noyola MD LAB BLOOD ORDERABLES Final Resu lt [facility] [address] [place] [address], * ECG 12 lead (05/07/2025 7:30 PM EDT) Only the most recent of3 resultswithin the time period is included. [facility] Ventricular Rate ECG 97 BPM GEMUSE Atrial Rate 97 BPM GEMUSE P-R Interval 154 ms GEMUSE QRS Duration 124 ms GEMUSE Q-T Interval 400 ms GEMUSE QTc 508 ms GEMUSE P Wave [place] 78 degrees GEMUSE R [place] -17 degrees GEMUSE T [place] 91 degrees GEMUSE ECG Interpretation Normal sinus rhythm Biatrial enlargement Left bundle branch block Abnormal ECG When compared with ECG of 17-APR-2025 04:14, No significant change was found Confirmed by Delroy LUCIO, PAM ([id number]) on 05/08/2025 6:30:38 AM GEMUSE 05/07/2025 7:30 PM EDT 05/08/2025 6:30 AM EDT us Kemar Noyola MD ECG ORDERABLES Final Result GEM[facility] * CT Abdomen Pelvis w Contrast (05/07/2025 6:41 PM EDT) Anatomical Region Laterality Modality Body Computed Tomogra phy 05/07/2025 7:29 PM EDT Addenda Addendum by Tangela Restrepo MD on 05/07/2025 7:44 PM EDT ADDENDUM: This report was discussed with Dr. Alfaro on May 07, 2025 19:43:00 EDT. This document has been electronically signed by: Lulú Tejada on 05/07/2025 19:44:19 Impressions 05/07/2025 7:29 PM EDT 1. Likely cholelithiasis and mild sludge in the gallbladder with similar appearance of the gallbladder compared with previous examination. 2. Diverticulosis without acute diverticulitis. 3. Mild small bowel mesenteric stranding in left mid abdomen. No evidence of an abscess in the abdomen and pelvis. 4. Questionable 7 mm enhancing lesion in left hepatic lobe anteriorly. This can be further evaluated on nonemergent multiphase hepatic MRI. 5. 1.6 cm possibly mildly spiculated right lung base nodule with a adjacent small nodularities. This is nonspecific and malignant lesion is a consideration. Recommend follow-up chest CT consider follow-up PET-CT. 6. Small opacity in the right middle lobe may represent atelectasis or pneumonia. 7. Additional nonacute findings as described. This document has been electronically signed by: Tangela Restrepo MD on 05/07/2025 19:29:56 Narrative 05/07/2025 7:29 PM EDT INDICATION: Abdominal abscess/infection suspected CT abdomen and pelvis with contrast Comparison: CT/[place]/SR - ABDOMEN AND PELVIS C- CT - 2/4/24 11:14 EST Findings: Small opacity in right middle lobe may represent atelectasis or pneumonia. 1.6 cm noncalcified nodule in right lung base with adjacent small nodular densities which appears somewhat spiculated on coronal reconstructed images.. Vague left basilar opacities. No pleural effusion. The gallbladder is small densities likely small stones and sludge apparent area which looks like narrowing in mid gallbladder also seen on previous study. No biliary ductal dilatation. Low-attenuation of the liver parenchyma suggestive of steatosis. Questionable 7 mm enhancing lesion in left hepatic lobe seen on image 36/175 series 3. The spleen is unremarkable. Pancreas within normal limits.. Stable small bilateral adrenal lesions measuring 1.2 cm on the right and 1.4 cm on the left which are nonspecific. Enhancement of bilateral kidneys with no ureteral stones and no hydronephrosis or hydroureter. Nonspecific bilateral perinephric stranding. No bowel obstruction, pneumoperitoneum, or pneumatosis. Apparent diffuse gastric wall thickening likely due to decompression but gastritis not excluded. Mild inflammatory stranding in small bowel mesentery left mid abdomen. Minimal stranding in retroperitoneal fat on the left improved compared with previous study. No evidence of loculated fluid collection in the abdomen and pelvis. Diverticulosis with no CT evidence of acute diverticulitis. Appendix not identified. Uterus is small. Urinary bladder is nearly empty. Atherosclerotic vascular disease with no aneurysm of the abdominal aorta. No acute fracture. Procedure Note Tangela Restrepo MD - 05/07/2025 INDICATION: Abdominal abscess/infection suspected CT abdomen and pelvis with contrast Comparison: CT/[place]/SR - ABDOMEN AND PELVIS C- CT - 10/15/23 11:14 EST Findings: Small opacity in right middle lobe may represent atelectasis orpneumonia. 1.6 cm noncalcified nodule in right lung base with adjacent smallnodular densities which appears somewhat spiculated on coronal reconstructed images.. Vague left basilar opacities. No pleural effusion. The gallbladder is small densities likely small stones and sludgeapparent area which looks like narrowing in mid gallbladder also seen on previous study. No biliary ductal dilatation. Low-attenuation of the liver parenchyma suggestive of steatosis. Questionable 7 mm enhancing lesion in left hepatic lobe seen on image 36/175 series 3. The spleen is unremarkable. Pancreas within normal limits.. Stable small bilateral adrenal lesions measuring 1.2 cm on the right and 1.4 cm onthe left which are nonspecific. Enhancement of bilateral kidneys with no ureteral stones and no hydronephrosis or hydroureter. Nonspecific bilateral perinephricstranding. No bowel obstruction, pneumoperitoneum, or pneumatosis. Apparent diffuse gastric wall thickening likely due to decompression but gastritis not excluded. Mild inflammatory stranding in small bowel mesentery left mid abdomen. Minimal stranding in retroperitoneal fat on the left improved compared with previous study. No evidence of loculated fluid collection in the abdomen and pelvis. Diverticulosis with no CT evidence of acute diverticulitis. Appendix not identified. Uterus is small. Urinary bladder is nearly empty. Atheroscleroticvascular disease with no aneurysm of the abdominal aorta. No acute fracture. IMPRESSION: 1. Likely cholelithiasis and mild sludge in the gallbladder with similar appearance of the gallbladder compared with previous examination. 2. Diverticulosis without acute diverticulitis. 3. Mild small bowel mesenteric stranding in left mid abdomen. Noevidence of an abscess in the abdomen and pelvis. 4. Questionable 7 mm enhancing lesion in left hepatic lobe anteriorly. This can be further evaluated on nonemergent multiphase hepatic MRI. 5. 1.6 cm possibly mildly spiculated right lung base nodule with a adjacent small nodularities. This is nonspecific and malignant lesion lidya consideration. Recommend follow-up chest CT consider follow-up PET-CT. 6. Small opacity in the right middle lobe may represent atelectasis or pneumonia. 7. Additional nonacute findings as described. This document has been electronically signed by: Tangela Restrepo MD on 05/07/2025 19:29:56 Angely Harden MD IM CT PROCEDURES Edited Resul t - Final * (ABNORMAL) Urinalysis with reflex microscopic and culture (05/07/2025 6:36 PM EDT) Specific [place] Urine 1.018 1.003 - 1.030 LAB URINALYSIS - AUTOMATED METHOD 05/07/2025 7:34 PM EDT [facility] pH, Urine 7.5 5.0 - 8.0 pH LAB URINALYSIS - AUTOMATED METHOD 05/07/2025 7:34 PM EDT [facility] Leukocytes, Urine Moderate(A) Negative LAB URINALYSIS - AUTOMATED METHOD 05/07/2025 7:34 PM [facility] Nitrite, Urine Negative Negative LAB URINALYSIS - AUTOMATED METHOD 05/07/2025 7:34 PM [facility] Protein, Urine 30(A) <=Trace mg/dL LAB URINALYSIS - AUTOMATED METHOD 05/07/2025 7:34 PM [facility] Glucose, Urine Negative Negative mg/dL LAB URINALYSIS - AUTOMATED METHOD 05/07/2025 7:34 PM [facility] Ketones, Urine 15(A) Negative mg/dL LAB URINALYSIS - AUTOMATED METHOD 05/07/2025 7:34 PM [facility] Urobilinogen , Urine 1.0 0.2 - 1.0 mg/dL LAB URINALYSIS - AUTOMATED METHOD 05/07/2025 7:34 PM [facility] Bilirubin, Urine Negative Negative LAB URINALYSIS - AUTOMATED METHOD 05/07/2025 7:34 PM [facility] Blood, Urine Negative Negative LAB URINALYSIS - AUTOMATED METHOD 05/07/2025 7:34 PM [facility] RBC, Urine 6.5(H) 0 - 4 /HPF LAB URINALYSIS - AUTOMATED METHOD 05/07/2025 7:34 PM [facility] WBC, Urine 13.6(H) 0 - 4 /HPF LAB URINALYSIS - AUTOMATED METHOD 05/07/2025 7:34 PM [facility] Squamous Epithelial, Urine 69(H) 0 - 60 /LPF LAB URINALYSIS - AUTOMATED METHOD 05/07/2025 7:34 PM [facility] Bacteria, Urine Negative Negative /HPF LAB URINALYSIS - AUTOMATED METHOD 05/07/2025 7:34 PM [facility] Hyaline Casts, Urine 1.2 0 - 3 /LPF LAB URINALYSIS - AUTOMATED METHOD 05/07/2025 7:34 PM EDT [facility] Urine Urine specimen obtained by clean catch procedure / Unknown Non-blood Collection / Unknown 05/07/2025 6:36 PM EDT 05/07/2025 7:26 PM EDT us Angely Harden MD LAB URINE ORDERABLES Final Res ult Performing Organization Address City/[facility]/ZIP Co de Phone Number [facility] [address] [place] [address], [place] [phone] * Galindo urine culture tube (05/07/2025 6:36 PM EDT) Extra Tube Hold for add-ons. 05/07/2025 9:01 PM EDT [facility] Comment:Auto resulted. Urine Urine specimen obtained by clean catch procedure / Unknown Non-blood Collection / Unknown 05/07/2025 6:36 PM EDT 05/07/2025 7:26 PM EDT us Angely Harden MD LAB URINE ORDERABLES Final Res ult Performing Organization Address [facility] de Phone Number [facility] [address] [place] [address], [place] [phone] * (ABNORMAL) Culture urine (05/07/2025 6:36 PM EDT) Culture, Urine 10,000-49,000 CFU/mL Vancomycin resistant Enterococcus faecium(A) MARSHALL 05/11/2025 7:56 AM EDT [facility] Comment: The organism value for this result has been updated. These results have been appended to the previously preliminary verified report. Edited result: Previously reported as Gram Positive Cocci on 05/09/2025 at 1135 EDT. Edited result: Previously reported as Enterococcus faecium on 05/10/2025 at 0844 EDT. Urine Urine specimen obtained by clean catch procedure / Unknown Non-blood Collection / Unknown 05/07/2025 6:36 PM EDT 05/07/2025 7:34 PM EDT Narrative Organism Antibiotic Method Susceptibility Vancomycin resistant Enterococcus faecium Benzylpenicillin MARSHALL >=64 ug/ml: Resistant Vancomycin resistant Enterococcus faecium Ampicillin MARSHALL >=32 ug/ml: Resistant Vancomycin resistant Enterococcus faecium Ciprofloxacin MARSHALL >=8 ug/ml: Resistant Vancomycin resistant Enterococcus faecium Levofloxacin MARSHALL >=8 ug/ml: Resistant Vancomycin resistant Enterococcus faecium Quinupristin/Dalfopristin MARSHALL 0.5 ug/ml: Susceptible Vancomycin resistant Enterococcus faecium Linezolid MARSHALL 2 ug/ml: Susceptible Vancomycin resistant Enterococcus faecium Vancomycin MARSHALL >=32 ug/ml: Resistant Vancomycin resistant Enterococcus faecium Tetracycline MARSHALL >=16 ug/ml: Resistant Vancomycin resistant Enterococcus faecium Nitrofurantoin MARSHALL 64 ug/ml: Intermediate us Angely Harden MD LAB MICROBIOLOGY - GENERAL ORD ERABLES Final Result [facility] [address] [place] [address], * (ABNORMAL) CBC auto differential (05/07/2025 5:25 PM EDT) Only the most recent of3 resultswithin the time period is included. WBC 15.3(H) 4.8 - 10.8 K/mcL LAB HEMETOLOGY METHOD 05/07/2025 6:00 PM EDT [facility] RBC 2.80(L) 3.80 - 4.80 M/mcL LAB HEMETOLOGY METHOD 05/07/2025 6:00 PM EDT [facility] Hemoglobin 9.3(L) 11.5 - 16.0 g/dL LAB HEMETOLOGY METHOD 05/07/2025 6:00 PM EDT [facility] Hematocrit 29.2(L) 35.0 - 47.0 % LAB HEMETOLOGY METHOD 05/07/2025 6:00 PM EDT [facility] MCV 103.2(H) 79.0 - 98.0 FL LAB HEMETOLOGY METHOD 05/07/2025 6:00 PM [facility] MCH 32.9(H) 27.0 - 32.0 pcg LAB HEMETOLOGY METHOD 05/07/2025 6:00 PM [facility] MCHC 31.8(L) 32.0 - 37.0 g/dL LAB HEMETOLOGY METHOD 05/07/2025 6:00 PM [facility] RDW 13.1 11.0 - 15.0 % LAB HEMETOLOGY METHOD 05/07/2025 6:00 PM [facility] Platelets 382 130 - 400 K/mcL LAB HEMETOLOGY METHOD 05/07/2025 6:00 PM [facility] MPV 9.2 7.0 - 11.0 FL LAB HEMETOLOGY METHOD 05/07/2025 6:00 PM [facility] NRBC 0.0 <1.0 % LAB HEMETOLOGY METHOD 05/07/2025 6:00 PM [facility] NRBC Absolute 0.00 <0.10 K/mcL LAB HEMETOLOGY METHOD 05/07/2025 6:00 PM [facility] Neutrophils Relative 92.6 % LAB HEMETOLOGY METHOD 05/07/2025 6:00 PM [facility] Lymphocytes Relative 2.6 % LAB HEMETOLOGY METHOD 05/07/2025 6:00 PM [facility] Monocytes Relative 2.9 % LAB HEMETOLOGY METHOD 05/07/2025 6:00 PM [facility] Eosinophils Relative 0.8 % LAB HEMETOLOGY METHOD 05/07/2025 6:00 PM [facility] Basophils Relative 0.1 % LAB HEMETOLOGY METHOD 05/07/2025 6:00 PM [facility] Immature Granulocytes Relative 1.0 % LAB HEMETOLOGY METHOD 05/07/2025 6:00 PM EDT [facility] Neutrophils Absolute 14.18(H) 1.50 - 7.00 K/mcL LAB HEMETOLOGY METHOD 05/07/2025 6:00 PM EDT [facility] Lymphocytes Absolute 0.40(L) 1.00 - 5.00 K/mcL LAB HEMETOLOGY METHOD 05/07/2025 6:00 PM EDT [facility] Monocytes Absolute 0.45 0.20 - 1.00 K/mcL LAB HEMETOLOGY METHOD 05/07/2025 6:00 PM EDT [facility] Eosinophils Absolute 0.12 0.00 - 0.50 K/mcL LAB HEMETOLOGY METHOD 05/07/2025 6:00 PM EDT [facility] Basophils Absolute 0.02 0.00 - 0.20 K/mcL LAB HEMETOLOGY METHOD 05/07/2025 6:00 PM EDT [facility] Immature Granulocytes Absolute 0.16(H) 0.00 - 0.03 K/mcL LAB HEMETOLOGY METHOD 05/07/2025 6:00 PM EDT [facility] Blood Venous blood specimen / Unknown Venipuncture / Unknown 05/07/2025 5:25 PM EDT 05/07/2025 5:50 PM EDT us Kemar Noyola MD LAB BLOOD ORDERABLES Final Resu lt [facility] [address] [place] [address], * B-type natriuretic peptide (05/07/2025 5:25 PM EDT) Only the most recent of2 resultswithin the time period is included. BNP 44 <=100 pcg/mL LAB CHEMISTRY METHOD 05/07/2025 6:25 PM EDT [facility] Blood Venous blood specimen / Unknown Venipuncture / Unknown 05/07/2025 5:25 PM EDT 05/07/2025 5:50 PM EDT Kemar Noyola MD LAB BLOOD ORDERABLES Final Resu lt Performing Organization Address City/[facility]/ZIP Co de Phone Number [facility] [address] [place] [address], [place] [phone] * Lipase (05/07/2025 5:25 PM EDT) Lipase 36 13 - 75 unit/L LAB CHEMISTRY METHOD 05/07/2025 6:24 PM EDT [facility] Blood Venous blood specimen / Unknown Venipuncture / Unknown 05/07/2025 5:25 PM EDT 05/07/2025 5:50 PM EDT Angely Harden MD LAB BLOOD ORDERABLES Final Res ult Performing Organization Address [facility]/ZIP Co de Phone Number [facility] [address] [place] [address], [place] [phone] * (ABNORMAL) Hepatic function panel (05/07/2025 5:25 PM EDT) Only the most recent of2 resultswithin the time period is included. Total Protein 5.4(L) 6.0 - 8.0 g/dL LAB CHEMISTRY METHOD 05/07/2025 6:24 PM EDT [facility] Albumin 2.6(L) 3.2 - 5.0 g/dL LAB CHEMISTRY METHOD 05/07/2025 6:24 PM EDT [facility] Total Bilirubin 0.6 0.0 - 1.4 mg/dL LAB CHEMISTRY METHOD 05/07/2025 6:24 PM EDT [facility] Bilirubin, Direct <0.1 0.0 - 0.3 mg/dL LAB CHEMISTRY METHOD 05/07/2025 6:24 PM EDT [facility] Bilirubin, Indirect LAB CHEMISTRY METHOD 05/07/2025 6:24 PM EDT [facility] Comment:Unable to calculate Indirect Bilirubin. ALT (SGPT) 25 10 - 60 unit/L LAB CHEMISTRY METHOD 05/07/2025 6:24 PM EDT [facility] AST (SGOT) 37 10 - 42 unit/L LAB CHEMISTRY METHOD 05/07/2025 6:24 PM EDT [facility] Alkaline Phosphatase 101 42 - 121 unit/L LAB CHEMISTRY METHOD 05/07/2025 6:24 PM EDT [facility] Blood Venous blood specimen / Unknown Venipuncture / Unknown 05/07/2025 5:25 PM EDT 05/07/2025 5:50 PM EDT us Angely Harden MD LAB BLOOD ORDERABLES Final Res ult [facility] [address] [place] [address], [place] [phone] * (ABNORMAL) Basic metabolic panel (05/07/2025 5:25 PM EDT) Only the most recent of3 resultswithin the time period is included. Sodium 140 133 - 145 mmol/L LAB CHEMISTRY METHOD [facility] Potassium 3.8 3.5 - 5.5 mmol/L LAB CHEMISTRY METHOD 05/07/2025 6:24 PM EDT [facility] Comment:Hemolysis present Chloride 98 96 - 110 mmol/L LAB CHEMISTRY METHOD 05/07/2025 6:24 PM T [facility] CO2 37(H) 21 - 32 mmol/L LAB CHEMISTRY METHOD 05/07/2025 6:24 PM EDT [facility] Anion Gap 5 3 - 11 LAB CHEMISTRY METHOD 05/07/2025 6:24 PM EDT [facility] Glucose 100 70 - 100 mg/dL LAB CHEMISTRY METHOD 05/07/2025 6:24 PM EDT [facility] BUN 14 5 - 25 mg/dL LAB CHEMISTRY METHOD 05/07/2025 6:24 PM EDT [facility] Creatinine 0.66 0.50 - 1.10 mg/dL LAB CHEMISTRY METHOD 05/07/2025 6:24 PM EDT [facility] eGFR 93 >=60 mL/min/1. 73m2 LAB CHEMISTRY METHOD 05/07/2025 6:24 PM EDT [facility] Comment:Calculation based on the Chronic Kidney Disease Epidemiology Collaboration (CKD-EPI) equation refit without adjustment for race. BUN/Creatinine Ratio 21.2 LAB CHEMISTRY METHOD 05/07/2025 6:24 PM EDT [facility] Calcium 8.9 8.5 - 10.5 mg/dL LAB CHEMISTRY METHOD 05/07/2025 6:24 PM EDT [facility] Blood Venous blood specimen / Unknown Venipuncture / Unknown 05/07/2025 5:25 PM EDT 05/07/2025 5:50 PM EDT us Kemar Noyola MD LAB BLOOD ORDERABLES Final Resu lt [facility] [address] [place] [address], * Magnesium (04/19/2025 6:06 AM EDT) Only the most recent of2 resultswithin the time period is included. Magnesium 2.1 1.9 - 2.6 mg/dL LAB CHEMISTRY METHOD 04/19/2025 6:36 AM EDT [facility] Blood Venous blood specimen / Unknown Venipuncture / Unknown 04/19/2025 6:06 AM EDT 04/19/2025 6:11 AM EDT us Catherine De Leon NP LAB BLOOD ORDERABLES Final Resul t [facility] [address] [place] [address], * (ABNORMAL) Complete blood count (04/18/2025 6:33 AM EDT) WBC 10.1 4.8 - 10.8 K/mcL LAB HEMETOLOGY METHOD 04/18/2025 7:13 AM EDT [facility] RBC 2.90(L) 3.80 - 4.80 M/mcL LAB HEMETOLOGY METHOD 04/18/2025 7:13 AM EDT [facility] Hemoglobin 10.0(L) 11.5 - 16.0 g/dL LAB HEMETOLOGY METHOD 04/18/2025 7:13 AM EDT [facility] Hematocrit 32.1(L) 35.0 - 47.0 % LAB HEMETOLOGY METHOD 04/18/2025 [facility] MCV 109.9(H) 79.0 - 98.0 FL LAB HEMETOLOGY METHOD 04/18/2025 7:[facility] MCH 34.2(H) 27.0 - 32.0 pcg LAB HEMETOLOGY METHOD 04/18/2025 7:13 AM EDT [facility] MCHC 31.2(L) 32.0 - 37.0 g/dL LAB HEMETOLOGY METHOD 04/18/2025 7:13 AM EDT [facility] RDW 14.6 11.0 - 15.0 % LAB HEMETOLOGY METHOD 04/18/2025 7:[facility] Platelets 388 130 - 400 K/mcL LAB HEMETOLOGY METHOD 04/18/2025 7:13 AM EDT [facility] MPV 9.3 7.0 - 11.0 FL LAB HEMETOLOGY METHOD 04/18/2025 7:13 AM EDT [facility] NRBC 0.0 <1.0 % LAB HEMETOLOGY METHOD 04/18/2025 7:13 AM EDT [facility] NRBC Absolute 0.00 <0.10 K/mcL [facility] 04/18/2025 7:13 AM EDT [facility] Blood Venous blood specimen / Unknown Venipuncture / Unknown 04/18/2025 6:33 AM EDT 04/18/2025 6:58 AM EDT Monico Hurtado DO LAB BLOOD ORDERABLES Final R esult [facility] [address] [place] [address], * (ABNORMAL) Venous blood gas (04/17/2025 4:35 AM EDT) Only the most recent of2 resultswithin the time period is included. pH, Oziel 7.42 7.32 - 7.42 pH 04/17/2025 4:46 AM [facility] pCO2, Oziel 65(HH) 41 - 51 mmHg 04/17/2025 4:46 AM [facility] pO2, Oziel 63(H) 25 - 40 mmHg 04/17/2025 4:46 AM [facility] HCO3, Venous 36.6(H) 22.0 - 26.0 mmol/L 04/17/2025 4:46 AM [facility] O2 Sat, Oziel 90.6 % 04/17/2025 4:46 AM [facility] Base Excess, Oziel 15.3(H) -2.0 - 2.0 mmol/L 04/17/2025 4:46 AM EDT [facility] Blood Venous blood specimen / Unknown Venipuncture / Unknown 04/17/2025 4:35 AM EDT 04/17/2025 4:41 AM EDT Justine Lee MD LAB BLOOD ORDERABLES Final Res ult [facility] [address] [place] [address], * XR Chest 1 View (04/17/2025 3:25 AM EDT) Anatomical Region Laterality Modality Body Radiographic Lisa ging 04/17/2025 8:13 AM EDT Impressions 04/17/2025 8:14 AM EDT No acute findings. -------- FINAL REPORT -------- Dictated By: Raffaele Matt Dictated Date: 04/17/2025 08:13 ET Assigned Physician: Raffaele Matt Reviewed and Electronically Signed By: Raffaele Matt Signed Date: 04/17/2025 08:14 ET Workstation ID: [id number] Transcribed By: Self Edit Transcribed Date: 04/17/2025 08:13 ET Narrative 04/17/2025 8:14 AM EDT PROCEDURE: AP chest radiograph. HISTORY: pulmonary edema. COMPARISON: 01/23/2025. FINDINGS: Atherosclerotic calcifications of the aorta. Lungs, pleural spaces, and pulmonary vasculature are within normal limits. Mild degenerative changes of the spine and shoulders. Procedure Note Raffaele Matt MD - 04/17/2025 PROCEDURE: AP chest radiograph. HISTORY: pulmonary edema. COMPARISON: 01/23/2025. FINDINGS: Atherosclerotic calcifications of the aorta. Lungs, pleural spaces, andpulmonary vasculature are within normal limits. Mild degenerative changesof the spine and shoulders. IMPRESSION: No acute findings. -------- FINAL REPORT -------- Dictated By: Raffaele Matt Dictated Date: 04/17/2025 08:13 ET Assigned Physician: Raffaele Matt Reviewed and Electronically Signed By: Raffaele Matt Signed Date: 04/17/2025 08:14 ET Workstation ID: [id number] Transcribed By: Self Edit Transcribed Date: 04/17/2025 08:13 ET Justine Lee MD IMG XR PROCEDURES Final Result * (ABNORMAL) Comprehensive metabolic panel (04/17/2025 2:44 AM EDT) Pathologist [facility] Sodium 136 133 - 145 mmol/L LAB CHEMISTRY METHOD 04/17/2025 3:22 AM [facility] Potassium 3.3(L) 3.5 - 5.5 mmol/L LAB CHEMISTRY METHOD 04/17/2025 3:22 AM [facility] Chloride 93(L) 96 - 110 mmol/L LAB CHEMISTRY METHOD 04/17/2025 3:22 AM [facility] CO2 39(H) 21 - 32 mmol/L LAB CHEMISTRY METHOD 04/17/2025 3:22 AM [facility] Anion Gap 4 3 - 11 LAB CHEMISTRY METHOD 04/17/2025 3:22 AM [facility] Glucose 136(H) 70 - 100 mg/dL LAB CHEMISTRY METHOD 04/17/2025 3:22 AM [facility] BUN 14 5 - 25 mg/dL LAB CHEMISTRY METHOD 04/17/2025 3:22 AM [facility] Creatinine 0.88 0.50 - 1.10 mg/dL LAB CHEMISTRY METHOD 04/17/2025 3:22 AM [facility] eGFR 70 >=60 mL/min/1. 73m2 LAB CHEMISTRY METHOD 04/17/2025 3:22 AM [facility] Comment:Calculation based on the Chronic Kidney Disease Epidemiology Collaboration (CKD-EPI) equation refit without adjustment for race. BUN/Creatinine Ratio 15.9 LAB CHEMISTRY METHOD 04/17/2025 3:22 AM [facility] Calcium 8.6 8.5 - 10.5 mg/dL LAB CHEMISTRY METHOD 04/17/2025 3:22 AM [facility] AST (SGOT) 51(H) 10 - 42 unit/L LAB CHEMISTRY METHOD 04/17/2025 3:22 AM [facility] ALT (SGPT) 26 10 - 60 unit/L LAB CHEMISTRY METHOD 04/17/2025 3:22 AM [facility] Alkaline Phosphatase 70 42 - 121 unit/L LAB CHEMISTRY METHOD 04/17/2025 3:22 AM [facility] Total Protein 5.8(L) 6.0 - 8.0 g/dL LAB CHEMISTRY METHOD 04/17/2025 3:22 AM [facility] Albumin 3.2 3.2 - 5.0 g/dL LAB CHEMISTRY METHOD 04/17/2025 3:22 AM [facility] Total Bilirubin 0.3 0.0 - 1.4 mg/dL LAB CHEMISTRY METHOD 04/17/2025 3:22 AM [facility] Blood Venous blood specimen / Unknown Venipuncture / Unknown 04/17/2025 2:44 AM EDT 04/17/2025 2:51 AM EDT us Justine Lee MD LAB BLOOD ORDERABLES Final Res ult [facility] [address] [place] [address], * Hepatitis C antibody (11/27/2024 3:39 PM EDT) Hepatitis C Antibody Negative Negative LAB CHEMISTRY METHOD 11/27/2024 7:18 PM T [facility] Blood Venous blood specimen / Unknown Venipuncture / Unknown 11/27/2024 3:39 PM EDT 11/27/2024 3:59 PM EDT us Antonieta Martinez PA LAB BLOOD ORDERABLES Final R esult [facility] [address] [place] [address], [place] [phone] * Lipid panel (04/28/2022) LDL/HDL Ratio 3 0 - 4 Triglycerides 109 0 - 150 mg/dL Cholesterol 145 0 - 200 mg/dL HDL 56 >=40 mg/dL LDL Cholesterol 68 0 - 100 mg/dL Blood Venous blood specimen / Unknown Historical Provider LAB BLOOD ORDERABLES Kaylah l Result * CT LUNG SCREENING LOW DOSE (08/23/2021 4:42 PM EST) Anatomical Region Laterality Modality Computed Tomogra phy 08/23/2021 3:56 PM EST Narrative 08/23/2021 4:42 PM EST [facility] Diagnostic Imaging Department [address] [place], [place] [id number] Patient: TANGELA JACOBS /Age/Sex: 1955 - 66 - F Unit#: [id number] Location/Status: SPDICATLS/REG CLI Mnemonic/Ordering Site: [facility] Ordering Physician: YARITZA CANTRELL MD CT Lung Screening Low Dose - 08/23/21 - 1614 Indication: 53 pack-year smoking history, active smoker Technique: Low-dose CT scan of the chest obtained as a lung cancer screening study. Multiplanar reformatted images were obtained. Scanner: Undesk 64 slice VCT Dose reduction technique: ASIR (Adaptive statistical iterative reconstruction) and/or AEC (automated exposure control) Dose: total exam DLP 109.97 mGy-cm COMPARISON: CT scan of the chest dated 07/20/2019. FINDINGS: Chest wall: No focal abnormality is noted. Lower neck: The visualized portions of the thyroid gland are unremarkable. No lower cervical lymphadenopathy is identified. Lymph nodes: No axillary or mediastinal lymphadenopathy is identified. The assessment of hilar lymphadenopathy is difficult without the use of IV contrast. Mediastinum: No mediastinal mass is noted. The heart size is within normal limits. No pericardial effusion. No aneurysmal dilatation of the thoracic aorta is seen. There is atherosclerotic calcification of the coronaries and thoracic aorta. Lungs/airways: Moderate emphysematous disease. Peribronchial wall thickening and atelectasis in the lung bases bilaterally. 6 mm noncalcified irregular nodular perivascular density now noted in the right upper lobe (series 4 image 74). The trachea and central bronchi are widely patent. No focal confluent infiltrates are seen. No pleural effusion or pneumothorax. Upper abdomen: The visualized portions of the upper abdomen are otherwise grossly unremarkable on these noncontrast images. Osseous structures: No suspicious osseous lesions are identified. There are degenerative changes of the thoracic spine. Impression: New 6 mm noncalcified perivascular density in the right upper lobe possibly infectious in etiology. Bibasilar subsegmental atelectasis and peribronchial wall thickening with scattered mucus plugging consistent with bronchitis. Lung RADS 3, recommend low-dose diagnostic chest CT in 6 months. Code: G0297, G9637, G9557, G9551 Dictating Physician: MATT GALVAN MD Electronically Signed by: MATT GALVAN MD Dic Date/Time: 08/23/21 1623 Sign date/Time: 08/23/21 1642 Procedure Note Matt Galvan MD - 08/31/2022 [facility] Diagnostic Imaging Department [address] [place] [id number] Patient: TANGELA JACOBS Jarod /Age/Sex: 1955 - 66 - F Unit#: [id number] Location/Status: SPDICATLS/REG CLI Mnemonic/Ordering Site: [facility] Ordering Physician: YARITZA CANTRELL MD CT Lung Screening Low Dose - 08/23/21 - 1614 Indication: 53 pack-year smoking history, active smoker Technique: Low-dose CT scan of the chest obtained as a lung cancerscreening study. Multiplanar reformatted images were obtained. Scanner: Undesk 64 slice VCT Dose reduction technique: ASIR (Adaptive statistical iterativereconstruction) and/or AEC (automated exposure control) Dose: total exam DLP 109.97 mGy-cm COMPARISON: CT scan of the chest dated 07/20/2019. FINDINGS: Chest wall: No focal abnormality is noted. Lower neck: The visualized portions of the thyroid gland are unremarkable.No lower cervical lymphadenopathy is identified. Lymph nodes: No axillary or mediastinal lymphadenopathy is identified.The assessment of hilar lymphadenopathy is difficult without the use of IVcontrast. Mediastinum: No mediastinal mass is noted. The heart size is withinnormal limits. No pericardial effusion. No aneurysmal dilatation of the thoracicaorta is seen. There is atherosclerotic calcification of the coronaries andthoracic aorta. Lungs/airways: Moderate emphysematous disease. Peribronchial wallthickening and atelectasis in the lung bases bilaterally. 6 mm noncalcifiedirregular nodular perivascular density now noted in the right upper lobe (series 4image 74). The trachea and central bronchi are widely patent. No focalconfluent infiltrates are seen. No pleural effusion or pneumothorax. Upper abdomen: The visualized portions of the upper abdomen areotherwise grossly unremarkable on these noncontrast images. Osseous structures: No suspicious osseous lesions are identified. Thereare degenerative changes of the thoracic spine. Impression: New 6 mm noncalcified perivascular density in the right upper lobepossibly infectious in etiology. Bibasilar subsegmental atelectasis andperibronchial wall thickening with scattered mucus plugging consistent withbronchitis. Lung RADS 3, recommend low-dose diagnostic chest CT in 6 months. 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 Health Care Decision (hx) 10/17/2023 AD AMADOR DIRECTIVE Health Care Decision (hx) 10/17/2023 AD AMADOR DIRECTIVE Health Care Decision (hx) 10/17/2023 AD AMADOR DIRECTIVE Health Care Decision (hx) 10/17/2023 AD AMADOR DIRECTIVE Health Care Decision (hx) 10/17/2023 AD AMADOR DIRECTIVE Health Care Decision (hx) 10/17/2023 AD AMADOR DIRECTIVE Health Care Decision (hx) 10/17/2023 AD AMADOR DIRECTIVE Health Care Decision (hx) 10/17/2023 AD AMADOR DIRECTIVE Health Care Decision (hx) 10/17/2023 AD AMADOR DIRECTIVE Health Care Decision (hx) 04/27/2023 AD AMADOR DIRECTIVE Health Care Decision (hx) 04/27/2023 AD AMADOR DIRECTIVE Health Care Decision (hx) 04/27/2023 AD AMADOR DIRECTIVE Health Care Decision (hx) 04/27/2023 AD AMADOR DIRECTIVE Health Care Decision (hx) 04/27/2023 AD AMADOR DIRECTIVE Health Care Decision (hx) 04/27/2023 AD AMADOR DIRECTIVE Health Care Decision (hx) 04/27/2023 AD AMADOR DIRECTIVE Health Care Decision (hx) 04/27/2023 AD AMADOR DIRECTIVE Health Care Decision (hx) 04/27/2023 AD AMADOR DIRECTIVE Health Care Decision (hx) 04/27/2023 AD AMADOR DIRECTIVE Health Care Decision (hx) 04/27/2023 AD AMADOR DIRECTIVE Health Care Decision (hx) 04/27/2023 AD AMADOR DIRECTIVE Health Care Decision (hx) 04/27/2023 AD AMADOR DIRECTIVE * Full Code - Default (Latest Code Status on File) Date Activated Date Inactivated Comments 04/17/2025 8:47 AM 04/19/2025 5:36 PM This is order is used when code status has not been discussed with the patient, or code status is otherwise unknown/unconfirmed To update the patient's code status, place a code status order. Do not modify or discontinue any currently active code status orders. * Full Code - Default Date Activated Date Inactivated Comments 03/13/2025 6:33 PM 03/15/2025 4:28 PM This is order is used when code status has not been discussed with the patient, or code status is otherwise unknown/unconfirmed To update the patient's code status, place a code status order. Do not modify or discontinue any currently active code status orders. * Full Code - Default Date Activated Date Inactivated Comments 01/23/2025 2:06 PM 01/27/2025 1:45 PM This is orde r is used when code status has not been discussed with the patient, or code status is otherwise unknown/unconfirmed To update the patient's code status, place a code status order. Do not modify or discontinue any currently active code status orders. * Full Code - Default Date Activated Date Inactivated Comments 11/22/2024 6:43 PM 11/23/2024 2:00 PM This is orde r is used when code status has not been discussed with the patient, or code status is otherwise unknown/unconfirmed To update the patient's code status, place a code status order. Do not modify or discontinue any currently active code status orders. * Full Code - Default Date Activated Date Inactivated Comments 11/05/2024 4:26 PM 11/06/2024 9:29 PM This is orde r is used when code status has not been discussed with the patient, or code status is otherwise unknown/unconfirmed To update the patient's code status, place a code status order. Do not modify or discontinue any currently active code status orders. Care Teams Sales Manager Relationship Specialty Start Date End Date Francia Francois MD [address] [place] [phone] PCP - General Internal Medicine 11/24/21
--- OUTSIDE RECORDS SUMMARY | 2025-07-11 14:45 | XMS_ITS ---
Author Organization [address] [facility] Address [address] [place] [address] Phone Care Team Providers Care Cook Helper Name Role Phone Francia Francois MD Primary Care Provider [phone] Chronic Care Management Status:Ongoing (Active) Start date:05/07/2025 Enrollment date:05/19/2025 Enrollment reason:Referred by Care Team Related social drivers of health:Housing Instability, Food Access & Nutrition, Access to Healthcare, TH Health Literacy, Financial Risk, Transportation, Social Isolation, Food Risk Case Team Name Relationship Phone Vicky Mcgowan RN(Responsible Staff) Care Sandra mg Continued Care and Services Coordination
--- OUTSIDE RECORDS SUMMARY | 2025-07-11 14:45 | XMS_ITS | Data Portability ---
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 Bilateral Hearing Loss The patient's hearing loss is significant, particularly in the presence of background noise. Hearing aids were recommended for improvement. It was advised for the patient to explore insurance coverage options and to consult reputable providers. 2. Chronic Obstructive Pulmonary Disease (COPD) The patient is managed with oxygen therapy; no changes to this management are noted. 3. Postural Hypotension Symptoms of dizziness are attributed to postural hypotension. Patient was advised to rise slowly from sitting positions. [email or web address] Not available 04/07/2025 14:49:41 Plan of Treatment Reminders Order Date Submit [...] Modified By Organization Details Last Modified Time 04/07/2025 [id number] Please note: Parts of this encounter note have been generated by AI based on audio conversation. Patient consent was required prior to utilizing this technology. Content review was required prior to finalizing the note. [email or web address] Not available 04/07/2025 14:49:41 Reason for Referral None Reported. Results Created Date Observation Date Name Description Value Unit Range Abnormal Flag Note LastModifiedBy Organization Detail LastModifiedTime 04/07/20 25 audio gram No observ ation record ed. BARCODE Not Available 2024 17:04:57 Result Notes None recorded. 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 14:30:58 Polysubst ance dependenc e 68832222 Active [address] [facility] 14:30:58 Acute hypoxemic and hypercapn ic respirato ry failure 059972946 Active [address] [facility] 14:30:59 Dysphonia 98194037 Active 2021 Hoarsenes s; Note: Date Diagnosed : 03/02/2022 4:25 PM (R49.0) Not Available [facility] 4 03:05:06 Acute laryngiti s 3640671 Active 2021 Acute laryngiti s; Note: Date Diagnosed : 03/02/2022 4:25 PM (J04.0) Not Available [facility] 4 03:05:07 Sensorine ural hearing loss in right ear 82574514634 100 Active 2021 Sensorine ural hearing loss, unilatera l, right ear, with restricte d hearing on the contralat eral side; Note: Date Diagnosed : 03/02/2022 4:56 PM (H90.A21) Not Available [facility] 4 03:05:07 Sensorine ural hearing loss of bilateral ears 260852577 Active 2021 Sensorine ural hearing loss, bilateral ; Note: Date Diagnosed : 03/02/2022 4:25 PM (H90.3) Not Available [facility] 4 03:05:06 Mixed conductiv e and sensorine ural hearing loss of left ear 53041928339 107 Active 2021 Mixed conductiv e and sensorine ural hearing loss, unilatera l, left ear with restricte d hearing on the contralat eral side; Note: Date Diagnosed : 03/02/2022 4:56 PM (H90.A32) Not Available [facility] 4 03:05:08 Vitamin D deficienc y 26975214 Active 2021 Christy tolentino, [place] [facility] 5 14:30:58 Dyspnea 896909568 Active 2023 Christy tolentino, [place] - [facility] 5 14:30:58 Nutrition al marasmus 64618950 Active 2023 Christy tolentino, [place] - [facility] 5 14:30:58 Chronic diastolic heart failure 299101343 Active 2023 Christy tolentino, [place] - [facility] 5 14:30:58 Left bundle branch block 48841476 Active 2023 Christy tolentino [place] - [facility] 5 14:30:59 Hypercoag ulability state 11163607 Active 2023 Christy tolentino [place] - [facility] 5 14:30:59 Myocardia l infarctio n 90024415 Active 2023 Christy tolentino, [place] [facility] 5 14:30:58 Chronic back pain 711183560 Active 2023 Christy tolentino, [place] - [facility] 5 14:30:58 Chronic obstructi ve pulmonary disease 61138441 Active 2023 YADIEL ONEAL MD [address] [place] [address],[place] [address], [facility] [place], [place], [address] , [place] [facility] 14:52:03 Depressiv e disorder 00429615 Active 2023 Christy tolentino, [place] - [facility] 14:30:58 Arthritis 3388223 Active 2023 Christy tolentino, [place] [facility] 14:30:58 Anxiety 66246500 Active 2023 Christy tolentino, [place] [facility] 14:30:58 Hyperlipi demia 80168702 Active 2023 Christy tolentino, [place] [facility] 14:30:58 Essential hypertens ion 72371222 Active 2023 Christy tolentino, [place] [facility] 14:30:59 Iron deficienc y anemia due to blood loss 442662006 Active 2024 Christy tolentino, [place] [facility] 14:30:59 Acute on chronic hypoxemic and hypercapn ic respirato ry failure 94009626675 107 Active 2024 Christy tolentino, [place] [facility] 14:30:58 Patient encounter status 364665828 Active 2024 Christy tolentino, [place] [facility] 14:30:58 Aspiratio n pneumonit is 687684877 Active 2024 Christy tolentino, [place] [facility] 14:30:58 Tobacco user 978204794 Active 2024 Christy tolentino, [place] [facility] 14:30:58 Alcohol withdrawa l 790292763 Active 2024 Christy tolentino, [place] [facility] 14:30:58 Heart failure with normal ejection fraction 460759192 Active 2024 Christy tolentino, [place] [facility] 14:30:58 Orthostat ic hypotensi on 47931760 Active 2024 YADIEL ONEAL MD [address] [address], [place], [address] , [facility] 14:52:10 Problem Notes None recorded. Procedures Surgical History Date Name Laterality Status Provider Name and Address Organization Details Recorded Time 04/07/2025 Comp Audio with Tymps - 07015 & 88154 completed GEOVANNY HOANG [address] [facility],[place] [address], [place], [address], [facility] 04/07/2025 14:12:34 Imaging Results None recorded. Procedure Notes None recorded. Medical Equipment None Reported. Allergies Allergen ID Allergen Name Allergen Category Reaction Reaction Severity Criticality Documentation Date Start Date Code Code System Note Provider Name and Address Organization Details Recorded Time 853023 No known allergy (situatio n) Not available Not available Not available Not available 04/07/2025 50323 6003 SNOMED Christy [address]esto tolentino [facility] 14:31:34 Medications Name Sig Start Date Stop Date Status Note LastModified by Organization Details LastModified Time furosemid e 40 mg tablet TAKE 1 TABLET BY MOUTH TWICE A DAY active Not Available Not Available No t Available buspirone 5 mg tablet TAKE 1 TABLET BY MOUTH THREE TIMES A DAY active Not Available Not Available No t Available bupropion HCl SR 150 mg tablet,12 hr sustained -release active Medicati on ID: [id number] B rand Name: bupropio n HCl Send Method: E-Prescr ibed Sub s Allowed: subs OK Speci al Instruct ion: TAKE 1 TABLET BY MOUTH EVERY DAY Medi cationGe nericNam e: bupropio n HCl Not Available Not Available Not Available atorvasta tin 80 mg tablet TAKE 1 TABLET BY MOUTH EVERY DAY active Not Available Not Available No t Available clonidine HCl 0.1 mg tablet TAKE 1 TABLET BY MOUTH EVERY DAY active Not Available Not Available No t Available acetamino phen 325 mg tablet TAKE 2 TABLETS BY MOUTH 3 TIMES A DAY,X5 DAYS, NEEDED FOR MILD PAIN OR TEMPERAT URE OVER 100.5 active Not Available Not Available No t Available carvedilo l 6.25 mg tablet TAKE 1 TABLET BY MOUTH TWICE A DAY WITH MEALS active Not Available Not Available No t Available prednison e 10 mg tablet TAKE 3 TABLETS BY MOUTH FOR 3 DAYS THEN RESUME YOUR HOME DOSE OF PREDNISO NE. active Not Available Not Available No t Available doxycycli ne hyclate 100 mg capsule PLEASE SEE ATTACHED FOR DETAILED DIRECTIO NS active Not Available Not Available No t Available nicotine 14 mg/24 hr daily transderm al patch APPLY ONE PATCH TOPICALL Y ONCE DAILY DIRECTED active Not Available Not Available No t Available ipratropi um 0.5 mg-albute rol 3 mg (2.5 mg base)/3 mL nebulizat ion soln TAKE 3 ML BY NEBULIZA TION EVERY 6 HOURS active Not Available Not Available No t Available diltiazem malate ER 120 mg tablet,ex tended release 24 hr 2023 active Not Available Not Available Not Avai lable trazodone 50 mg tablet TAKE 1 TABLET BY MOUTH EVERY DAY AT NIGHT active Not Available Not Available No t Available cefpodoxi me 200 mg tablet TAKE 1 TABLET BY MOUTH TWICE A DAY active Not Available Not Available No t Available prednison e 20 mg tablet PLEASE SEE ATTACHED FOR DETAILED DIRECTIO NS active Not Available Not Available No t Available sertralin e 100 mg tablet TAKE 1 AND 1/2 TABLETS DAILY BY MOUTH active Not Available Not Available No t Available prednison e 5 mg tablet TAKE 1 TABLET BY MOUTH EVERY DAY active Not Available Not Available No t Available thiamine HCl (vitamin B1) 100 mg tablet TAKE 1 TABLET BY MOUTH EVERY DAY active Not Available Not Available No t Available bacitraci n 500 unit/gram topical ointment APPLY TO AFFECTED AREA 3 TIMES A DAY active Not Available Not Available No t Available meclizine 12.5 mg tablet TAKE 1 TABLET BY MOUTH 3 TIMES PER DAY NEEDED FOR DIZZINES S FOR 14 DAYS active Not Available Not Available No t Available doxycycli ne monohydra te 100 mg tablet TAKE 1 TABLET BY MOUTH EVERY 12 HOURS 04/04 completed Not Available Not Available Not Available tramadol 50 mg tablet TAKE 1 TABLET BY MOUTH 2 TIMES A DAY. MAX DAILY AMOUNT: 100 MG active Not Available Not Available No t Available acetamino phen 500 mg tablet TAKE 1 TABLET BY MOUTH EVERY 8 HOURS NEEDED FOR PAIN active Not Available Not Available No t Available DM-GG-pot assium citrate 10 mg-100 mg-85 mg/5 mL oral liquid 10 mL by oral route. 2024 active Not Available Not Available Not Avai lable oxycodone -acetamin ophen 5 mg-325 mg tablet TAKE 1 TABLET BY MOUTH EVERY 8 HOURS NEEDED FOR SEVERE PAIN FOR UP TO 3 DAYS. MAX 3 TABLETS/ DAY active Not Available Not Available No t Available amoxicill in 875 mg tablet TAKE 1 TABLET BY MOUTH TWO TIMES A DAY UNTIL FINISHED 04/04 completed Not Available Not Available Not Available potassium chloride ER 20 mEq tablet,ex tended release(p art/cryst ) PLEASE SEE ATTACHED FOR DETAILED DIRECTIO NS active Not Available Not Available No t Available magnesium oxide 400 mg (241.3 mg magnesium ) tablet TAKE 1 TABLET BY MOUTH EVERY DAY active Not Available Not Available No t Available cyanocoba evans (vit B-12) 500 mcg tablet TAKE 1 TABLET BY MOUTH EVERY DAY active Not Available Not Available No t Available meclizine 25 mg tablet TAKE 1 TABLET BY MOUTH EVERY 8 HOURS active Not Available Not Available No t Available ascorbic acid (vitamin C) 250 mg tablet TAKE 1 TABLET BY MOUTH 2 TIMES A DAY. TAKE WITH IRON TABLET FOR BETTER ABSORPTI ON active Not Available Not Available No t Available cephalexi n 500 mg capsule TAKE 1 CAPSULE BY MOUTH THREE TIMES A DAY 04/04 completed Not Available Not Available Not Available paroxetin e 20 mg tablet 20 mg by oral route. 04/28 completed Not Available Not Available Not Available pantopraz ole 40 mg tablet,de layed release TAKE 1 TABLET BY MOUTH TWICE A DAY DO NOT CRUSH, CHEW, OR SPLIT active Not Available Not Available No t Available ferrous sulfate 325 mg (65 mg iron) tablet TAKE 1 TABLET BY MOUTH EVERY DAY active Not Available Not Available No t Available lisinopri l 10 mg tablet TAKE 1 TABLET BY MOUTH EVERY DAY active Not Available Not Available No t Available lidocaine 5 % topical patch 2024 active Not Available Not Available Not Avai lable fluticaso ne 500 mcg-salme terol 50 mcg/dose blistr powdr for inhalatio n 1 {puff} twice a day by inhalati on route. 11/27 completed Not Available Not Available Not Available Advair Diskus 250 mcg-50 mcg/dose powder for inhalatio n active Medicati on ID: [id number] B rand Name: Advair Diskus S end Method: E-Prescr ibed Sub s Allowed: subs OK Speci al Instruct ion: TAKE 1 PUFF BY MOUTH TWICE A DAY Medi cationGe nericNam e: Advair Diskus Not Available Not Available Not Available metoprolo l tartrate 50 mg tablet TAKE 1 TABLET BY MOUTH TWICE A DAY active Not Available Not Available No t Available nicotine 21 mg/24 hr daily transderm al patch PLACE 1 PATCH ON THE SKIN 1 TIME EACH DAY. active Not Available Not Available No t Available diltiazem CD 120 mg capsule,e xtended release 24 hr TAKE 1 CAPSULE BY MOUTH EVERY DAY active Not Available Not Available No t Available folic acid 1 mg tablet TAKE 1 TABLET BY MOUTH EVERY DAY active Not Available Not Available No t Available mupirocin 2 % topical ointment APPLY TO AFFECTED AREA 3 TIMES A DAY FOR 10 DAYS active Not Available Not Available No t Available furosemid e 20 mg tablet TAKE 2 TABLETS BY MOUTH DAILY. TAKE 40 MG BY MOUTH DAILY. active Not Available Not Available No t Available oxycodone -acetamin ophen 7.5 mg-325 mg tablet active Medicati on ID: [id number] B rand Name: oxycodon e-acetam inophen Send Method: E-Prescr ibed Sub s Allowed: subs OK Speci al Instruct ion: TAKE 1 TABLET BY MOUTH FOUR TIMES A DAY NEEDED Ned Chicasanila Name: oxycodon e-acetam inophen Not Available Not Available Not Available lovastati n 20 mg tablet active Medicati on ID: [id number] B rand Name: lovastat in Send Method: E-Prescr ibed Sub s Allowed: subs OK Speci al Instruct ion: TAKE 1 TABLET BY MOUTH EVERY DAY Medi cationGe nericNam e: lovastat in Not Available Not Available Not Available albuterol sulfate HFA 90 mcg/actua tion aerosol inhaler PLEASE SEE ATTACHED FOR DETAILED DIRECTIO NS active Not Available Not Available No t Available fluticaso ne propionat e 50 mcg/actua tion nasal spray,[place] pension PLEASE SEE ATTACHED FOR DETAILED DIRECTIO NS active Not Available Not Available No t Available sertralin e 50 mg tablet TAKE 2 TABLETS BY MOUTH EVERY DAY active Not Available Not Available No t Available atenolol 50 mg tablet active Medicati on ID: [id number] B rand Name: atenolol Send Method: E-Prescr ibed Sub s Allowed: subs OK Speci al Instruct ion: TAKE 1 TABLET BY MOUTH EVERY DAY Medi cationGe nericNam e: atenolol Not Available Not Available Not Available amoxicill in 875 mg-potass ium clavulana te 125 mg tablet TAKE 1 TABLET BY MOUTH TWICE A DAY FOR 7 DAYS active Not Available Not Available No t Available oxycodone 5 mg tablet TAKE 1 TABLET BY MOUTH TWO TIMES A DAY NEEDED FOR PAIN active Not Available Not Available No t Available escitalop dioni 20 mg tablet active Medicati on ID: [id number] B rand Name: escitalo pram oxalate Send Method: E-Prescr ibed Sub s Allowed: subs OK Speci al Instruct ion: TAKE 1 TABLET BY MOUTH EVERY DAY Medi cationGe nericNam e: escitalo pram oxalate Not Available Not Available Not Available nicotine (polacril ex) 2 mg buccal lozenge 2 mg by buccal route. 2024 active Not Available Not Available Not Avai lable cyclobenz aprine 5 mg tablet TAKE 1 TABLET BY MOUTH AT BEDTIME NEEDED FOR MUSCLE SPASMS. active Not Available Not Available No t Available bacitraci n zinc 500 unit/gram topical ointment in packet 1 {applica tion} 3 times a day by topical route. 2024 active Not Available Not Available Not Avai lable bupropion HCl XL 150 mg 24 hr tablet, extended release TAKE 1 TABLET (150 MG TOTAL) BY MOUTH ONE TIME EACH DAY IN THE MORNING. DO NOT CRUSH, CHEW, OR SPLIT active Not Available Not Available No t Available DILT-XR 180 mg capsule, extended release TAKE 1 CAPSULE BY MOUTH DAILY FOR 360 DAYS. active Not Available Not Available No t Available ferrous gluconate 324 mg (38 mg iron) tablet TAKE 1 TABLET BY MOUTH TWICE A DAY active Not Available Not Available No t Available cholecalc iferol (vitamin D3) 50 mcg (2,000 unit) capsule TAKE 1 CAPSULE BY MOUTH EVERY DAY active Not Available Not Available No t Available Vitamin B-1 (mononitr ate) 100 mg tablet active Medicati on ID: [id number] B rand Name: Vitamin B-1 (mononit rate) Se nd Method: E-Prescr ibed Sub s Allowed: subs OK Speci al Instruct ion: TAKE 1 TABLET BY MOUTH EVERY DAY Medi cation nericNam e: Vitamin B-1 (mononit rate) Not Available Not Available Not Available buprenorp shashi 2 mg-naloxo ne 0.5 mg sublingua l film TAKE 1 FILM SUBLINGU ALLY TWICE DAILY active Not Available Not Available No t Available roflumila st 500 mcg tablet TAKE 1 TABLET (500 MCG TOTAL) BY MOUTH 1 (ONE) TIME EACH DAY. active Not Available Not Available No t Available acidophil us 100 million cell-pect in, citrus 10 mg capsule 1 {capsule } by oral route. 2024 active Not Available Not Available Not Avai lable magnesium 400 mg (as magnesium oxide) capsule 1 {capsule } by oral route. 2024 active Not Available Not Available Not Avai lable Eliquis 5 mg tablet TAKE 1 TABLET BY MOUTH TWICE A DAY active Not Available Not Available No t Available Breo Ellipta 200 mcg-25 mcg/dose powder for inhalatio n INHALE 1 PUFF BY MOUTH 1 (ONE) TIME EACH DAY. active Not Available Not Available No t Available Trelegy Ellipta 100 mcg-62.5 mcg-25 mcg powder for inhalatio n PLEASE SEE ATTACHED FOR DETAILED DIRECTIO NS active Not Available Not Available No t Available roflumila st 250 mcg tablet 1 {tbl} by oral route. 2024 active Not Available Not Available Not Avai lable magnesium 400 mg (as magnesium oxide) tablet TAKE 1 TAB BY MOUTH EVERY DAY active Not Available Not Available No t Available Chest Congestio n Relief DM 10 mg-100 mg/5 mL oral syrup TAKE 10 ML BY MOUTH EVERY 4 (FOUR) HOURS IF NEEDED FOR COUGH FOR UP TO 10 DAYS. active Not Available Not Available No t Available Vitals Date Recorded Body height Body mass index (BMI) Body weight Provider Name and Address Organization Details Last Updated DateTime 04/07/2025 160.02 cm 23.2 kg/m2 38986.6 g Christy Orozco [place] - [facility] 04/07/2025 14:30:45 Social History None recorded. Functional Status Question Answer Note LastModified by Organizat ion Details LastModified Time What is your level of alcohol consumption? Occasional [id number] Information not available 04/07/2025 Mental Status None recorded. Family History Nothing Reported. Medical History No medical history recorded. Gynecological HistoryNo gynecological history recorded. Obstetrics History GPAL:G 0 P 0 0 0 0 Immunizations Vaccine Type Date Status Note Provider Nam e and Address Organization Details Recorded Time Influenza, adjuvanted, trivalent, PF 4 completed Christy tolentino [place] [facility] 04/07/2025 14:31:08 Influenza, high-dose, quadrivalent, PF 2 completed Christy Orozco null, [place] [facility] 04/07/2025 14:31:08 Influenza, high-dose, quadrivalent, PF 0 completed Christy Orozco null, [place] [facility] 04/07/2025 14:31:08 Influenza, high-dose, quadrivalent, PF 2 completed Christy tolentino[place] [facility] 04/07/2025 14:31:08 Pneumococcal conjugate PCV 13 0 completed Christy Rodrigezos rajan [place] [facility] 04/07/2025 14:31:08 Influenza, split virus, trivalent, preservative 7 completed Christy tolentino [place] [facility] 04/07/2025 14:31:08 Influenza, split virus, trivalent, preservative 9 completed Christy tolentino [place] [facility] 04/07/2025 14:31:08 Influenza, split virus, trivalent, preservative 6 completed Christy Rodrigezos rajan [place] [facility] 04/07/2025 14:31:08 Past Encounters Encounter ID Performer Location Encounter Start Date Encounter Closed Date Diagnosis/Indication Diagnosis SNOMED-CT Code Diagnosis ICD10 Code Diagnosis IMO Codes Diagnosis Note [id number] YADIEL ONEAL MD [facility] [address] [address] 04/07/2025 13:33:56 04/07/2025 14:52:51 Sensorineural hearing loss of bilateral ears 757871069 H90.3 Audiologic al evaluation results: Right ear: Mild sloping to severe sensorineu ral hearing loss with good word recognitio n. Left ear: Mild sloping to severe sensorineu ral hearing loss with excellent word recognitio n. Tympanomet ry: Right Ear:Type A Left Ear:Type As Chronic ob structive pulmonary disease 37808501 J44.9 [id number] Orthostati c hypotension 73587899 I95.1 751326 Health Concerns Section Related Observation LastModified by Organization Detai ls LastModified Time None Recorded Concern Status LastModified by Organization Details LastModified Time None Recorded Advance Directives Directive None Recorded Payers Insurance Date Sequence Insurance Name Policy Number Policy Mccoy Covered Member ID Mccoy Member ID Guarantor Name 04/04/2025 1 [facility] BLUE (MEDICARE REPLACEMENT PPO) [id number] Tangela Sevilla [id number] Tangela Sevilla Notes Date Note Type Note Provider Name and Address Organization Details Recorded Time 04/07/2025 text/html ROS as noted in the HPI The patient is a 70-year-old female presenting with bilateral hearing loss. She reports difficulty hearing, especially in environments with background noise, impacting her ability to follow conversations with her granddaughter. The hearing loss has been progressive, worsening over time. The patient denies any tinnitus but notes an occasional throbbing sensation that is brief in duration. Furthermore, the patient has experienced episodes of dizziness when rising quickly after sitting for a period. This is linked to orthostatic changes in blood pressure rather than relating to her ear condition. She is on oxygen therapy for the management of her chronic obstructive pulmonary disease (COPD). YADIEL GREEN MD [address] [place] [address], [phone], [facility] - [facility] 04/07/2025 14:52:36 OBGyn Episode No OBEpisode recorded.
--- OUTSIDE RECORDS SUMMARY | 2025-07-11 14:45 | XMS_ITS | Patient Health Record ---
Author Organization [facility] Address [address] [place] [address] Care Team Providers Care Furniture Finisher Name Role Phone TOM MCDONOUGH Unavailable [phone] Allergies No Known Allergies Reason For Referral [...] W/U Status Risk Notes Problem Chronic pain (15314182) Other chronic pain (G89.29) Active confirmed Problem Essential hypertension (89752305) Essential (primary) hypertension (I10) Active confirmed Problem Pure hypercholesterolemia (874322433) Pure hypercholesterolemia (E78.00) Active confirmed Problem Anxiety (15492295) Anxiety (F41.9) Active confi rmed Problem COPD - Chronic obstructive pulmonary disease (97403310) Chronic obstructive pulmonary disease, unspecified COPD type (J44.9) Active confirmed Problem Mild major depression, single episode (53030304) Current mild episode of major depressive disorder without prior episode (F32.0) Active confirmed Plan Of Treatment No Information Insurance Providers Payer Name Payer Address Payer Phone Subscriber Number Group Number Insured Name Patient Relationship to Insured Coverage Start Date Coverage End Date [facility] [address] [place] [address] [phone] [id number] [employer] JACOBS Self - patient is the insured Medical (General) History Medical History History ICD Code hypertension asthma headache hyperlipidemia anxiety depression Surgical History Surgery Date(Month/Year) Tubaligation Mole on her lip was removed and biopsy s how cancerous mole
== END 2025-07-11 14:37 | disposition home or self-care (01) ==
LOC: HO.PMC 13:49
PROVIDERS: PCP Internal Medicine; Visit Provider Registered Nurse Emergency
DX: M47.812 Spondylosis without myelopathy or radiculopathy, cervical region (principal); M47.816 Spondylosis without myelopathy or radiculopathy, lumbar region; G89.4 Chronic pain syndrome
CPT/HCPCS: 99213; G2211

== ENCOUNTER → 2025-07-11 13:48 | Outpatient (BNVA) | payer MEDICARE, SELFPAY | PROVIDERS: PCP Internal Medicine; Visit Provider Registered Nurse Emergency | DX: M47.812 Spondylosis without myelopathy or radiculopathy, cervical region (principal); M47.816 Spondylosis without myelopathy or radiculopathy, lumbar region; G89.4 Chronic pain syndrome | CPT/HCPCS: 99212 ==